=== PATIENT | female | born 1955 | race Caucasian/White ===

== ENCOUNTER 2019-12-23 09:46 | Outpatient (CLI) | payer OTHER, SELFPAY ==
[2019-12-23 10:35] LABS: Alanine Aminotransferase 10 U/L (4-35); Albumin Level 3.8 g/dL (3.5-5.1); Alkaline Phosphatase 78 U/L (38-126); Aspartate Amino Transferase 19 U/L (14-36); Bilirubin,Total 0.3 mg/dL (0.2-1.3); Blood Urea Nitrogen 22 mg/dL (7-17); Carbon Dioxide 24 mmol/L (22-30); Chloride 103 mmol/L (98-107); Estimated Glomerular Filt Rate > 60; Glucose 98 mg/dL (65-105); Magnesium 1.6 mg/dL (1.6-2.3); Potassium 3.9 mmol/L (3.4-5.0); Sodium 137 mmol/L (137-145)
[2019-12-23 10:37] LABS: Hematocrit 34.5 % (37.0-47.0); Hemoglobin 10.2 g/dL (12.0-15.0); Mean Corpuscular HGB Conc 29.6 g/dl (32-36); Mean Corpuscular Hemoglobin 25.1 pg (26-34); Mean Platelet Volume 10.4 fl (7.4-10.4); Platelet Count Result 286 k/mm3 (150-375); Red Blood Count 4.06 M/mm3 (4.2-5.4); White Blood Count 9.1 K/mm3 (4.5-10.0)
[2019-12-23 10:59] LABS: Iron 26 ug/dL (37-170)
[2019-12-23 11:08] LABS: Percent Iron Saturation 7 % (20-50)
[2019-12-23 11:24] LABS: Vitamin D 25 Hydroxy 61.2 ng/mL
[2019-12-23 11:41] LABS: Folic Acid 19.3 ng/mL (2.76->20)
[2019-12-24 11:34] LABS: Phosphorus 3.6 mg/dL (2.5-4.5)
[2019-12-26 09:03] LABS: Testosterone Free 0.2 pg/mL (0.2-5.0)
== END 2019-12-23 09:47 | disposition home or self-care (01) ==
PROVIDERS: PCP Family Medicine; Visit Provider Family Medicine
DX: M62.81 Muscle weakness (generalized) (principal); R55 Syncope and collapse; E83.52 Hypercalcemia; Z96.653 Presence of artificial knee joint, bilateral
CPT/HCPCS: 36415; 80053; 82306; 82607; 82728; 82746; 83540; 83550; 83735; 84100; 84402; 84443; 85027

== ENCOUNTER 2020-01-28 11:31 | Outpatient (CLI) | payer OTHER, SELFPAY ==
--- NOTE | ~2020-01-28 | US_ITS ---
EXAMINATION:US venous doppler LE LT INDICATION:Leg edema TECHNIQUE: Multiple grayscale, color flow and Doppler images of the left lower extremity deep venous systems were obtained and reviewed. COMPARISON:08/20/2019 FINDINGS: The common femoral, superficial femoral and popliteal veins demonstrate normal respiratory variation, augmentation and compressibility. Color flow is also seen within the posterior tibial, pe roneal, greater saphenous and profunda veins. IMPRESSION: 1: No lower extremity deep venous thrombosis. Reviewed, dictated and finalized at location A.
== END 2020-01-28 11:32 ==
PROVIDERS: PCP Family Medicine; Visit Provider Nurse Practitioner Family
DX: R60.9 Edema, unspecified (principal)
CPT/HCPCS: 93971

== ENCOUNTER 2020-03-20 16:58 | Emergency (ER) | payer OTHER, SELFPAY ==
[2020-03-20 17:11] VITALS: BP 115/64; PULSE 57; RESP 18; TEMP 36.8
--- NOTE | 2020-03-20 17:17 | PC.NURSE ---
pt wound had drained all day yesterday and now has dark red scabbed over center. cellulitis noted surrounding the wound
--- NOTE | 2020-03-20 18:32 | ED.GENADULT ---
HPI - General Adult General Chief complaint: Skin/Abscess/Foreign Body Stated complaint: spider bite Time Seen by Provider: 03/20/20 18:35 Source: patient Mode of arrival: ambulatory Limitations: no limitations History of Present Illness HPI narrative: 64-year-old female patient presents to the [facility] with complaints of a wound to the left lower belly that has been there for the past 4 days. Patient's unsure of any injury that she is aware of but thinks she might of gotten bitten by a spider. Patient states it started off as a pinpoint black wound and is gotten increasingly worse. Patient states she really has not had much drainage from it but is concerned about the redness around the black area. Patient states that she is no longer a diabetic since having gastric bypass surgery in 2015. Denies any fevers, body aches or chills. Related Data Home Medications Medication Instructions Recorded Confirmed aspirin 81 mg PO DAILY 11/18/19 11/18/19 gabapentin 11/18/19 pentoxifylline mg PO 11/18/19 sertraline [Zoloft] 50 mg PO DAILY 11/18/19 11/18/19 topiramate [Topamax] 50 mg PO BID 11/18/19 11/18/19 triamterene 11/18/19 Allergies Allergy/AdvReac Type Severity Reaction Status Date / Time morphine Allergy Intermediate HALLUCINATE Verified 12/06/19 11:57 S Penicillins AdvReac Mild YEAST Verified 12/06/19 11:57 INFECTION Bumble Bee Allergy Intermediate SWELLING Uncoded 12/06/19 11:57 Review of Systems Review of Systems: Narrative: CONSTITUTIONAL: Denies fever, chills, or sweats. EYES: Denies visual changes, redness, or discharge. ENT: Denies rhinorrhea, congestion, sore throat, or otalgia. CARDIOVASCULAR: Denies chest pain, palpitations, or edema. RESPIRATORY: Denies cough or dyspnea. GASTROINTESTINAL: Denies abdominal pain, nausea, vomiting, or diarrhea. GENITOURINARY: Denies dysuria or hematuria. SKIN: Denies rash or itching. Positive wound to left lower abdomen x4 days MUSCULOSKELETAL: Denies back pain, joint pain, or myalgia. NEUROLOGIC: Denies headache, numbness, or weakness. PSYCHIATRIC: Denies anxiety or depression. [facility] Past Medical History Medical History Anemia Diabetes DJD (degenerative joint disease) DVT prophylaxis Hypertension Meniere's disease Osteoarthritis Ovarian cyst Panic disorder Rotator cuff tear rt Surgical History Surgical History Hx of total knee arthroplasty bilateral Family History Family History Other Cerebrovascular accident Diabetes mellitus Family history of heart disease in male family member before age 55 Family history of lung disease Family history of malignant neoplasm Family history of seizure disorder Hypertension Social History Social History Smoking status: Former smoker Alcohol intake: current Gender identity (if verbalized by the patient): Female Comments At the time of my signature I agree with nursing past medical history, surgical, social, and family history. There is no relevant family history pertinent to the presenting complaint. Exam Narrative: Exam Narrative: GENERAL: Well-appearing, well-nourished, and in no acute distress. HEAD: Normocephalic, atraumatic. EYES: PERRLA and EOMI. ENT: Nares clear, no rhinorrhea or epistaxis. Mucous membranes moist. NECK: Supple. No lymphadenopathy CHEST: Clear to auscultation. No respiratory distress. HEART: Regular rate and rhythm. No murmur heard. Normal peripheral pulses. ABDOMEN: Soft, nontender, nondistended, normal active bowel sounds. EXTREMITIES: Normal range of motion. No edema. SKIN: Warm, dry, no rash. Patient does have what appears to be a black and necrotic area to the left lower abdomen measuring approximately 2 cm x 1.5 cm. Patient does have some peeling
== END 2020-03-20 18:40 | disposition home or self-care (01) ==
PROVIDERS: Emergency Provider Nurse Practitioner Family; PCP Family Medicine
DX: L03.311 Cellulitis of abdominal wall (principal); E11.9 Type 2 diabetes mellitus without complications; I10 Essential (primary) hypertension; H81.09 Meniere's disease, unspecified ear; M19.90 Unspecified osteoarthritis, unspecified site; Z96.653 Presence of artificial knee joint, bilateral; Z87.891 Personal history of nicotine dependence
CPT/HCPCS: 99213; G0463

== ENCOUNTER 2020-04-15 15:30 | Outpatient (CLI) | payer OTHER, SELFPAY ==
--- NOTE | ~2020-04-15 | MR_ITS ---
EXAMINATION: MR brain/brain stem wo con EXAM DATE: 04/15/2020 16:42 INDICATION: Migraine headache. Blurred vision. Numbness in fingers. TECHNIQUE: Magnetic resonance imaging (MRI) of the brain/brain stem obtained without contrast. Sagitt al T1, axial diffusion, gradient echo (T2*), T1, T2, FLAIR sequences obtained. Comparison is made to prior examination from 06/13/2012. FINDINGS: There are no areas of restricted diffusion to suggest acute infarction. There is no acute hemorrhage seen on the T2*, a hemosiderin sensitive sequence. No intraparenchymal brain mass lesion. There is mild periventricular and subcortical T2/FLAIR signal hyperintensity, nonspecific but probab ly related to small vessel ischemic disease (microangiopathy). There are no extra-axial collections. Flow voids are seen in the cerebral arteries on the T2-weighted sequences consistent with their exp ected patency. The orbits are unremarkable. Soft tissue is unremarkable. Compared to 2011, mild pr ogression in the microangiopathy. IMPRESSION: 1. No acute intracranial findings. 2. Mild microangiopathy. Reviewed, dictated and finalized at location A.
== END 2020-04-15 15:31 | disposition home or self-care (01) ==
PROVIDERS: PCP Family Medicine; Visit Provider Psychiatry & Neurology Neurology
DX: G43.909 Migraine, unspecified, not intractable, without status migrainosus (principal); R93.0 Abnormal findings on diagnostic imaging of skull and head, not elsewhere classified
CPT/HCPCS: 70551

== ENCOUNTER 2020-06-08 13:48 | Outpatient (CLI) | payer OTHER, SELFPAY ==
[2020-06-08 14:24] LABS: Hematocrit 40.2 % (37.0-47.0); Hemoglobin 12.6 g/dL (12.0-15.0); Immature Reticulocyte Fraction 9.6 % (3.0-15.9); Mean Corpuscular HGB Conc 31.3 g/dl (32-36); Mean Corpuscular Hemoglobin 28.4 pg (26-34); Mean Corpuscular Volume 90.5 fl (80-100); Mean Platelet Volume 10.6 fl (7.4-10.4); Platelet Count Result 184 k/mm3 (150-375); Red Blood Count 4.44 M/mm3 (4.2-5.4); Red Cell Distribution Width 15.9 % (11.5-14.5); Reticulocyte Hemoglobin Conten 33.7 pg (28.2-35.7); Reticulocyte Percent 1.32 % (0.7-4.3); Reticulocytes Absolute 0.06 B/L (32.2-175.7); White Blood Count 6.5 K/mm3 (4.5-10.0)
[2020-06-08 14:36] LABS: Alanine Aminotransferase 13 U/L (4-35); Albumin Level 4.1 g/dL (3.5-5.1); Alkaline Phosphatase 84 U/L (38-126); Aspartate Amino Transferase 22 U/L (14-36); Bilirubin,Total 0.7 mg/dL (0.2-1.3); Blood Urea Nitrogen 22 mg/dL (7-17); Calcium 10.3 mg/dL (8.4-10.2); Carbon Dioxide 26 mmol/L (22-30); Chloride 105 mmol/L (98-107); Estimated Glomerular Filt Rate > 60; Glucose 86 mg/dL (65-105); Lactate Dehydrogenase 332 U/L (313-618); Potassium 4.1 mmol/L (3.4-5.0); Sodium 138 mmol/L (137-145)
[2020-06-08 14:43] LABS: Transferrin 231 mg/dL (206-381)
[2020-06-08 15:01] LABS: Iron 85 ug/dL (37-170)
[2020-06-08 15:09] LABS: Basophils Absolute Auto 0.1 K/mm3 (0.0-0.1); Basophils Percent Auto 1.1 % (0.2-1.2); Eosinophils Absolute Auto 0.3 K/mm3 (0-0.3); Eosinophils Percent Auto 3.8 % (0-4.4); Immature Granulocyte Absolute 0.02 K/mm3 (0.00-0.031); Immature Granulocyte Percent A 0.3 % (0-0.5); Lymphocytes Absolute Auto 1.89 K/mm3 (0.9-3.2); Lymphocytes Percent Auto 28.6 % (18.3-44.2); Monocytes Absolute Auto 0.6 K/mm3 (0.1-0.6); Monocytes Percent Auto 9.7 % (2.6-8.5); Neutrophils Absolute Auto 3.7 K/mm3 (1.3-6.7); Neutrophils Percent Auto 56.5 % (45.5-73.1)
[2020-06-08 15:10] LABS: Percent Iron Saturation 28 % (20-50)
[2020-06-08 15:45] LABS: Folic Acid 7.2 ng/mL (2.76->20); Vitamin B12 > 1000.0 pg/mL (239-931)
== END 2020-06-08 13:49 | disposition home or self-care (01) ==
PROVIDERS: PCP Family Medicine; Visit Provider Nurse Practitioner
DX: E61.1 Iron deficiency (principal); E53.8 Deficiency of other specified B group vitamins; I10 Essential (primary) hypertension
CPT/HCPCS: 36415; 80053; 82607; 82728; 82746; 83540; 83550; 83615; 84466; 85025; 85027; 85046; 88108

== ENCOUNTER 2020-08-17 10:22 | Outpatient (CLI) | payer OTHER, SELFPAY ==
[2020-08-17 10:51] LABS: Anion Gap 9 mmol/L (8-16); Blood Urea Nitrogen 26 mg/dL (7-17); Calcium 10.5 mg/dL (8.4-10.2); Carbon Dioxide 26 mmol/L (22-30); Chloride 105 mmol/L (98-107); Estimated Glomerular Filt Rate 56; Glucose 83 mg/dL (65-105); Potassium 4.2 mmol/L (3.4-5.0); Sodium 140 mmol/L (137-145)
== END 2020-08-17 10:23 | disposition home or self-care (01) ==
PROVIDERS: PCP Family Medicine; Visit Provider Nurse Practitioner Family
DX: R60.9 Edema, unspecified (principal); I10 Essential (primary) hypertension
CPT/HCPCS: 36415; 80048

== ENCOUNTER → 2020-09-28 08:33 | Outpatient (CLI) | payer OTHER, SELFPAY ==
--- NOTE | ~2020-09-28 | XR_ITS ---
EXAMINATION: XR hand LT min 3V, XR wrist LT min 3V EXAM DATE: 09/28/2020 09:10 INDICATION: Pain in joints bilateral hands, pain bilateral wrists . TECHNIQUE: Left hand frontal, lateral and oblique projections obtained and reviewed. Left wrist fron nathaniel, frontal with ulnar deviation, oblique and lateral projections obtained and reviewed. There is n o prior study for comparison. FINDINGS: Left metacarpal bones are unremarkable. Left wrist scapholunate joint space is maintained . There is ulnar minus variance. There are no bony erosions identified. There is no more than mild p olyarticular primary osteoarthritis. There are no acute fractures or dislocations identified. There is no subcutaneous gas. There is soft tissue swelling over the wrist. There are no radiopaque forei gn bodies. IMPRESSION: 1. Nonspecific swelling over left wrist. 2. Mild polyarticular osteoarthritis. 3. Ulnar minus variance, congenital finding. Reviewed, dictated and finalized at location A. IL GREETER IMPRESSION: 1. Nonspecific swelling over left wrist. 2. Mild polyarticular osteoarthritis. 3. Ulnar minus variance, congenital finding.
--- NOTE | ~2020-09-28 | XR_ITS ---
EXAMINATION: XR hand RT min 3V, XR wrist RT min 3V EXAM DATE: 09/28/2020 09:10 INDICATION: Pain in joints bilateral hands, pain bilateral wrists . TECHNIQUE: Right hand frontal, lateral and oblique projections obtained and reviewed. Right wrist fro ntal, frontal with ulnar deviation, oblique and lateral projections obtained and reviewed. There is no prior study for comparison. FINDINGS: Right metacarpal bones are unremarkable. Right wrist scapholunate joint space is maintain ed. There is congenital ulnar minus variance. There is no more than mild polyarticular primary osteo arthritis. This is symmetric to the contralateral side. There are no bony erosions identified. There are no acute fractures or dislocations identified. There is no subcutaneous gas. The soft tissue i s unremarkable. There are no radiopaque foreign bodies. IMPRESSION: 1. Mild polyarticular right hand and wrist osteoarthritis. 2. Ulnar minus variance. Reviewed, dictated and finalized at location A. STRIAL SAFETY ENGINEER IMPRESSION: 1. Mild polyarticular right hand and wrist osteoarthritis. 2. Ulnar minus variance.
== END ==
PROVIDERS: PCP Family Medicine; Visit Provider Nurse Practitioner Family
DX: M19.031 Primary osteoarthritis, right wrist (principal); M79.89 Other specified soft tissue disorders; M19.032 Primary osteoarthritis, left wrist; M19.042 Primary osteoarthritis, left hand; M19.041 Primary osteoarthritis, right hand
CPT/HCPCS: 73110; 73130

== ENCOUNTER 2020-09-28 09:25 | Outpatient (CLI) | payer OTHER, SELFPAY ==
[2020-09-28 10:30] LABS: Add Urine Microscopic? YES; Appearance Urine Clear (Clear); Bacteria Urine Trace /hpf; Bilirubin Urine Negative (Negative); Blood Urine Negative (Negative); Color Urine Yellow (Yellow); Glucose Urine UA Negative (Negative); Ketones Urine Trace mg/dL (Negative); Leukocyte Esterase Ur 2+ LEU/UL (NEGATIVE); Mucus Urine Rare /lpf; Nitrate Urine Negative (Negative); Protein Urine 1+ mg/dL (Negative); RBC Urine 0-2 /hpf (0-2); Specific Grav Ur 1.024 (1.001-1.035); Squamous Epithelial Cell Urine Occasional /hpf (Few); WBC Urine >75 /hpf (0-3)
[2020-09-28 10:53] LABS: Erythrocyte Sedimentation Rate 31 mm/hr (0-20)
[2020-09-28 11:05] LABS: CRP 1.4 mg/dL (<1.0); Creatine Kinase 22 U/L (30-135); Uric Acid 7.2 mg/dL (2.5-7.5)
[2020-09-28 11:08] LABS: Complement C3 117 mg/dL (88-165); Rheumatoid Factor < 8.6 IU/ML (<12)
[2020-09-30 09:40] LABS: Anti Centromere B Antibody <1.0
[2020-09-30 10:16] LABS: Chromatin Antibody <1.0; RNP Antibodies <1.0
[2020-09-30 10:49] LABS: Complement Total CH50 >60 U/mL (31-60)
[2020-09-30 23:49] LABS: Anti Nuclear Antibody Titer >=1:1280 (Negative)
[2020-10-01 10:59] LABS: Anti Cyclic Citrullinated Pept 102 Units (<20)
[2020-10-01 21:35] LABS: Histone Antibody <1.0 U (<1.0)
== END 2020-09-28 09:26 | disposition home or self-care (01) ==
PROVIDERS: PCP Family Medicine; Visit Provider Nurse Practitioner Family
DX: M25.541 Pain in joints of right hand (principal); M25.542 Pain in joints of left hand; R53.83 Other fatigue; M54.5 Low back pain; M25.561 Pain in right knee; M25.562 Pain in left knee; R60.9 Edema, unspecified; M62.81 Muscle weakness (generalized)
CPT/HCPCS: 36415; 81001; 82550; 83516; 84550; 85652; 86038; 86039; 86140; 86160; 86162; 86200; 86225; 86235; 86430

== ENCOUNTER 2020-12-04 17:43 | Emergency (ER) | payer OTHER, SELFPAY ==
--- NOTE | ~2020-12-04 | XR_ITS ---
EXAMINATION: XR chest 2V DATE: 12/04/2020 18:23 INDICATION: Shortness of breath TECHNIQUE: frontal and lateral views of the chest were obtained. COMPARISON: Chest radiograph dated 11/04/2015 FINDINGS: New opacities at the posterior lung bases on the lateral projection, unclear whether left sided, righ t-sided or both and which could represent atelectasis and/or pneumonia. More streaky atelectasis at t he left costophrenic angle. No pulmonary edema, pleural effusion or pneumothorax. The cardiomediastin al silhouette is normal. Kennedy comparison prior rotator cuff repair at the right humeral head. Ther e are bridging osteophytes at multiple levels in the spine, consistent with diffuse idiopathic skelet al hyperostosis (DISH). Likely cholecystectomy clips in the upper abdomen. IMPRESSION: 1. Opacities project over the posterior lung bases, unclear whether left-sided, right-sided are both which could represent atelectasis and/or pneumonia. Reviewed, dictated and finalized at location A. CUTTER
--- NOTE | 2020-12-04 17:50 | PC.NURSE ---
1749-1st attempt to contact pt.. Pt did not answer phone.
--- NOTE | 2020-12-04 17:52 | PC.NURSE ---
2nd attempt to call- phone went straight to voicemail.
[2020-12-04 18:06] VITALS: BP 121/82; PULSE 78; RESP 18; TEMP 36.7; O2SAT 95
--- NOTE | 2020-12-04 18:23 | ED.URI ---
HPI - URI/Sore Throat General Chief Complaint: Upper Respiratory Infection Stated Complaint: COVID Time Seen by Provider: 12/04/20 18:15 Source: patient Mode of arrival: ambulatory Limitations: no limitations History of Present Illness HPI Narrative: Judy Santos is a 65 yo female with a PMH of DMT2, HTN, (in remission after 180 lb weight loss), who saw her doctor on and was tested on 11/30 and was closed Covid positive. She has been managing symptoms fairly well though she is developed a cough and today around noon started developed shortness of breath she got up to try to do dishes at the sink felt like she was going to lose consciousness sat down and rested for a while, and tried to do it again with the same result. She called her doctor who said she needed to come in and get a chest x-ray done. Related Data Home Medications Medication Instructions Recorded Confirmed cyanocobalamin (vitamin B-12) 1,000 mcg PO DAILY 12/04/20 12/04/20 furosemide 10 mg PO DAILY 12/04/20 12/04/20 gabapentin 300 mg PO TID 12/04/20 12/04/20 hydrochlorothiazide 25 mg PO DAILY 12/04/20 12/04/20 hydrocodone-acetaminophen 1 tablet PO DIRECTED 12/04/20 12/04/20 ibuprofen 800 mg PO QID 12/04/20 12/04/20 nabumetone 750 mg PO BID 12/04/20 12/04/20 ondansetron HCl 4 mg PO Q6-12H 12/04/20 12/04/20 topiramate 50 mg PO TID 12/04/20 12/04/20 Allergies Allergy/AdvReac Type Severity Reaction Status Date / Time morphine Allergy Intermediate HALLUCINATE Verified 06/08/20 10:53 S Penicillins AdvReac Mild YEAST Verified 06/08/20 10:53 INFECTION Bumble Bee Allergy Intermediate SWELLING Uncoded 06/08/20 10:53 Review of Systems Review of Systems: Narrative: CONSTITUTIONAL: Denies fever, chills, sweats. EYES: Denies visual changes, redness, discharge. ENT: Denies rhinorrhea, congestion, sore throat, otalgia. CARDIOVASCULAR: Denies chest pain, palpitations, edema. RESPIRATORY: Has dyspnea, shortness of breath with exertion, wheezing, dry cough GASTROINTESTINAL: Denies abdominal pain, nausea, vomiting, diarrhea. GENITOURINARY: Denies dysuria, hematuria, abnormal discharge SKIN: Denies rash or itching. NEUROLOGIC: Denies numbness, or focal weakness. PSYCHIATRIC: Denies anxiety or depression. [facility] Past Medical History Medical History (Updated 12/04/20 @ 18:33 by Beth Brock CNP) Anemia Diabetes DJD (degenerative joint disease) DVT prophylaxis Hypertension Meniere's disease Osteoarthritis Ovarian cyst Panic disorder Rotator cuff tear rt Surgical History Surgical History Hx of total knee arthroplasty bilateral Family History Family History Other Cerebrovascular accident Diabetes mellitus Family history of heart disease in male family member before age 55 Family history of lung disease Family history of malignant neoplasm Family history of seizure disorder Hypertension Social History Social History Smoking status: Former smoker Alcohol intake: current Gender identity (if verbalized by the patient): Female Comments At time of signature, I agree with nursing past medical, surgical, social and family history. There is no relevant family history pertinent to the presenting complaint. Exam Narrative: Exam Narrative: GENERAL: This is a well-nourished, well-developed patient, in moderate distress. HEAD: normocephalic, atraumatic. EYES: Sclera clear/white. Vision is grossly intact. EARS: External ears normal, . Hearing grossly intact. NOSE: External nose normal without nasal discharge, nares without redness, no rhinorrhea. THROAT: Mucous membranes moist, raspy voice NECK: Neck supple, non-tender CARDIOVASCULAR: Regular rate and rhythm without murmurs, gallops, or rubs. RESPIRATORY: Diminished to auscultation. Breath sounds equal except TLL
[2020-12-04] MEDS: IPRATROPIUM BR 0.02% INH SOLN 0.5 MG/2.5 ML VIAL INHALATION (18:36)
[2020-12-04] MEDS: ALBUTEROL SULFATE NEB 2.5 MG/3 ML INH INHALATION (18:36)
== END 2020-12-04 19:12 | disposition home or self-care (01) ==
PROVIDERS: Emergency Provider Nurse Practitioner; PCP Family Medicine
DX: U07.1 COVID-19 (principal); R06.02 Shortness of breath; Z87.891 Personal history of nicotine dependence; M19.90 Unspecified osteoarthritis, unspecified site
CPT/HCPCS: 71046; 94640; 96372; 99213; G0463; J1100

== ENCOUNTER 2020-12-18 13:51 | Outpatient (CLI) | payer OTHER, SELFPAY ==
--- NOTE | ~2020-12-18 | XR_ITS ---
EXAMINATION: XR chest 2V DATE: 12/18/2020 14:17 INDICATION: Pneumonia. Shortness of breath. TECHNIQUE: Frontal and lateral views of the chest were obtained. COMPARISON: Chest 2 views 12/04/2020 FINDINGS: There are airspace opacities at the lung bases. No pleural effusion or pneumothorax. The he art size is normal. There are suture anchors in right humeral head. IMPRESSION: 1. Worsened airspace opacities at the lung bases, consistent with atelectasis versus pneumonia. Reviewed, dictated and finalized at location A. H MANAGER IMPRESSION: 1. Worsened airspace opacities at the lung bases, consistent with atelectasis v ersus pneumonia.
== END 2020-12-18 13:52 ==
PROVIDERS: PCP Family Medicine
DX: J18.9 Pneumonia, unspecified organism (principal); R91.8 Other nonspecific abnormal finding of lung field
CPT/HCPCS: 71046

== ENCOUNTER 2021-03-16 22:47 | Observation (INO) | payer OTHER, SELFPAY ==
--- NOTE | ~2021-03-16 | NM_ITS ---
EXAMINATION: NM sherita stress w perfusion DATE: 03/17/2021 14:12 INDICATION: Atypical chest pain. TECHNIQUE: Rest images were obtained following intravenous administration of 7 mCi Tc99m tetrofosmin (Myoview). The patient was infused intravenously with Lexiscan (regadenoson). Then, 22.1 mCi Tc99m te trofosmin (Myoview) was administered intravenously, and stress images were obtained. Data was reconst ructed into short axis and horizontal and vertical long axis SPECT images. Gated SPECT images were al so obtained. COMPARISON: Chest CT 03/16/2021 FINDINGS: There is no definite reversible or fixed perfusion abnormality to suggest ischemia or infar ction. There is no segmental wall motion abnormality. Left ventricular ejection fraction measures > 70%. IMPRESSION: 1. No definite ischemia or infarct. 2. Normal left ventricular ejection fraction measuring >70%. Reviewed, dictated and finalized at location A.
--- NOTE | ~2021-03-16 | XR_ITS ---
EXAMINATION: XR chest 2V DATE: 03/16/2021 23:20 INDICATION: Midsternal chest pain TECHNIQUE: PA and lateral views of the chest were obtained. COMPARISON: Chest radiograph dated 12/18/2020 FINDINGS: Persistent opacities at the bilateral lung bases, left greater than right. No pleural effusion or pne umothorax. The cardiomediastinal silhouette is normal. Suture anchor at the right humeral head consis tent with prior rotator cuff repair. There are bridging osteophytes at multiple levels in the spine, consistent with diffuse idiopathic skeletal hyperostosis (DISH). IMPRESSION: 1. Persistent bibasilar opacities, left greater than right consistent with atelectasis and/or pneumon ia. Reviewed, dictated and finalized at location A. IMPRESSION: 1. Persistent bibasilar opacities, left greater than right consistent with atel ectasis and/or pneumonia.
--- NOTE | ~2021-03-16 | US_ITS ---
EXAMINATION: US venous doppler [facility] EXAM DATE: 03/17/2021 10:16 INDICATION: Elevated d-dimer and chest pain. TECHNIQUE: Multiple grayscale, color flow and Doppler images of the lower extremity deep venous syste ms bilaterally were obtained and reviewed. Comparison is made to prior examination from 01/28/2020. FINDINGS: Right side: The right common femoral, femoral and profunda veins demonstrate normal color flow, respi ratory variation, augmentation and compressibility. Compressibility, color flow confirmed within the right popliteal, posterior tibial, peroneal, and greater saphenous veins. Left side: The left common femoral, femoral and profunda veins demonstrate normal color flow, respira tory variation, augmentation and compressibility. Compressibility, color flow confirmed within the l eft popliteal, posterior tibial, peroneal, and greater saphenous veins. IMPRESSION: No lower extremity deep venous thrombosis bilaterally. Reviewed, dictated and finalized at location A.
--- NOTE | ~2021-03-16 | CT_ITS ---
EXAMINATION: CTA chest PE protocol DATE: 03/16/2021 23:47 INDICATION: Chest pain. Elevated d-dimer. TECHNIQUE: Computed tomography (CT) pulmonary angiogram of the chest was performed with 100 mL Omnipa que-350 intravenous contrast. Additional 3D reconstructions utilizing coronal maximum intensity proje ction (MIP) were performed. Automated exposure control and iterative reconstruction technique were em ployed. The dose-length product was 414.43 mGy-cm. COMPARISON: None FINDINGS: Could contrast opacification of the pulmonary arteries. There is mild streak artifact from dense cont rast in the superior vena cava and right atrium. Minimal scattered respiratory motion artifact which does not significantly limit evaluation. No pulmonary embolism. Mild groundglass and reticular opacit ies at the lung bases superimposed over peripheral cystic lung disease. This could represent either u sual interstitial pneumonia (UIP) with honeycombing or atelectasis and/or mild pulmonary edema superi mposed over paraseptal predominant emphysema. Some additional paraseptal and centrilobular emphysema seen in the upper lung zones without corresponding interstitial lung disease which would favor the la tter. No pneumonia or pleural effusion. Mild atelectasis/scarring along the inferior lingula. Heart s ize is normal. No pericardial effusion. Small amount of atherosclerotic coronary artery calcification along the left anterior descending coronary artery. Thoracic aorta is normal in caliber with no diss ection. Mild enlargement of the central pulmonary arteries consistent with pulmonary arterial hyperte nsion. No pathologically enlarged thoracic lymphadenopathy. Cholecystectomy clips at the gallbladder fossa. There are bridging osteophytes at multiple levels in the spine, consistent with diffuse idiopa thic skeletal hyperostosis (DISH). IMPRESSION: 1. No pulmonary embolism. 2. Bilateral basilar predominant opacities and cystic lung disease. Would favor mild bibasilar atelec tasis and/or pulmonary edema superimposed on paraseptal emphysema over usual interstitial pneumonia ( UIP) pattern chronic interstitial lung disease. 3. Mild enlargement of the central pulmonary arteries consistent with pulmonary arterial hypertension . Reviewed, dictated and finalized at location A. IMPRESSION: 1. No pulmonary embolism. 2. Bilateral basilar predominant opacities and cystic lung disease. Would favor mild bibasilar atelectasis and/or pulmonary edema superimposed on paraseptal e mphysema over usual interstitial pneumonia (UIP) pattern chronic interstitial l selvin disease. 3. Mild enlargement of the central pulmonary arteries consistent with pulmonary arterial hypertension.
[2021-03-16 22:51] VITALS: BP 135/75; PULSE 63; RESP 13; TEMP 37; O2SAT 100
--- NOTE | 2021-03-16 22:59 | ECG_ITS ---
Measurements Intervals [place] Rate: 62 P: 66 AR: 169 QRS: 12 QRSD: 107 T: -2 QT: 391 QTc: 398 Interpretive Statements SINUS RHYTHM CONSIDER INFERIOR INFARCT, AGE INDETERMINATE BORDERLINE ST ABNORMALITY- LAT/HIGH LAT LEADS BASELINE ARTIFACT- II, III, AVF, V2-V6 ABNORMAL ECG Electronically Signed On 03-17-2021 7:10:04 CDT by Elias Ling D.O.
--- NOTE | 2021-03-16 23:06 | ED.CHESTPAIN ---
HPI - Chest Pain General Chief Complaint: Chest Pain Stated Complaint: chest pain/indegestion/hi b/b Time Seen by Provider: 03/16/21 22:59 Source: patient Mode of arrival: ambulatory Limitations: no limitations History of Present Illness HPI narrative: Patient is a 65-year-old female complaining of chest pain, substernal, indigestion , 8 out of 10, nonradiating, worse with inspiration accompanied by nausea started 2 hours prior to arrival. Patient denies any shortness of breath, abdominal pain, vomiting, diarrhea, fever or chills. Related Data Home Medications Medication Instructions Recorded Confirmed cyanocobalamin (vitamin B-12) 1,000 mcg PO DAILY 12/04/20 12/04/20 furosemide 10 mg PO DAILY 12/04/20 12/04/20 gabapentin 300 mg PO TID 12/04/20 12/04/20 hydrochlorothiazide 25 mg PO DAILY 12/04/20 12/04/20 hydrocodone-acetaminophen 1 tablet PO DIRECTED 12/04/20 12/04/20 ibuprofen 800 mg PO QID 12/04/20 12/04/20 nabumetone 750 mg PO BID 12/04/20 12/04/20 ondansetron HCl 4 mg PO Q6-12H 12/04/20 12/04/20 topiramate 50 mg PO TID 12/04/20 12/04/20 Allergies Allergy/AdvReac Type Severity Reaction Status Date / Time morphine Allergy Intermediate HALLUCINATE Verified 06/08/20 10:53 S Penicillins AdvReac Mild YEAST Verified 06/08/20 10:53 INFECTION Bumble Bee Allergy Intermediate SWELLING Uncoded 06/08/20 10:53 Review of Systems Review of Systems: All systems reviewed & are unremarkable except as noted in HPI and below Constitutional: Constitutional: Denies body ache(s), Denies chills, Denies excessive sweating, Denies fatigue, Denies fever(s), Denies headache(s), Denies lethargy, Denies malaise, Denies weakness and Denies weight loss Eyes: Eyes: Denies blurry vision, Denies change in vision and Denies loss of vision ENT: Denies dizziness, Denies ear discharge, Denies headache(s), Denies lip swelling, Denies epistaxis, Denies nasal congestion, Denies neck pain, Denies throat swelling and Denies tongue swelling Cardiovascular: Cardiovascular: Denies chest pain with activity, Denies diaphoresis, Denies rapid heart rate, Denies edema, Denies irregular heart rhythm, Denies lightheadedness, Denies palpitations, Denies dyspnea and Denies dyspnea on exertion Respiratory: Respiratory: Denies chest congestion, Denies cough, Denies hemoptysis, Denies dyspnea and Denies dyspnea on exertion Gastrointestinal: Gastrointestinal: Denies abdominal pain, Denies melena, Denies hematochezia, Denies diarrhea, Denies vomiting and Denies hematemesis Musculoskeletal: Musculoskeletal: Denies abnormal gait, Denies deformity, Denies joint swelling, Denies limited range of motion, Denies neck pain and Denies numbness Neurologic: Denies Abnormal speech present, Denies abnormal gait, Denies confusion, Denies dizziness, Denies headache(s), Denies focal weakness, Denies loss of vision, Denies numbness, Denies Other visual disturbances, Denies Sensory deficit (Neuro) and Denies weakness Psychiatric: Psychiatric: Denies confusion, Denies depression, Denies auditory hallucinations, Denies homicidal ideation and Denies suicidal ideation Endocrine: Endocrine: Denies cold intolerance, Denies excessive sweating, Denies fatigue, Denies heat intolerance and Denies palpitations Hematologic/Lymphatic: Hematologic/Lymphatic: Denies easy bleeding and Denies easy bruising Allergic/Immunologic: Allergic/Immunologic: Denies lip swelling, Denies throat swelling and Denies tongue swelling PMFSH Past Medical History Medical History (Updated 03/17/21 @ 00:32 by Sukumar Dye MD) Anemia Diabetes DJD (degenerative joint disease) DVT prophylaxis Hypertension Meniere's disease Osteoarthritis Ovarian cyst Panic disorder Rotator cuff tear rt Surgical History Surgical History Hx of total knee arthroplasty bilateral Family History Family History
[2021-03-16 23:15] LABS: Basophils Absolute Auto 0.1 K/mm3 (0.0-0.1); Eosinophils Absolute Auto 0.9 K/mm3 (0-0.3); Eosinophils Percent Auto 9.5 % (0-4.4); Hematocrit 37.3 % (37.0-47.0); Hemoglobin 11.5 g/dL (12.0-15.0); Immature Granulocyte Absolute 0.04 K/mm3 (0.00-0.031); Immature Granulocyte Percent A 0.4 % (0-0.5); Lymphocytes Absolute Auto 2.02 K/mm3 (0.9-3.2); Lymphocytes Percent Auto 22.3 % (18.3-44.2); Mean Corpuscular HGB Conc 30.8 g/dl (32-36); Mean Corpuscular Hemoglobin 29.2 pg (26-34); Mean Corpuscular Volume 94.7 fl (80-100); Mean Platelet Volume 10.1 fl (7.4-10.4); Monocytes Absolute Auto 0.9 K/mm3 (0.1-0.6); Monocytes Percent Auto 9.6 % (2.6-8.5); Neutrophils Absolute Auto 5.2 K/mm3 (1.3-6.7); Neutrophils Percent Auto 57.2 % (45.5-73.1); Platelet Count Result 263 k/mm3 (150-375); Red Blood Count 3.94 M/mm3 (4.2-5.4); Red Cell Distribution Width 13.4 % (11.5-14.5); White Blood Count 9.1 K/mm3 (4.5-10.0)
[2021-03-16 23:24] LABS: INR 0.9; Prothrombin Time 13.1 Seconds (11.1-14.7)
[2021-03-16 23:25] LABS: Partial Thromboplastin Time 34.6 SECONDS (22.3-36.8)
[2021-03-16 23:27] LABS: D Dimer 2.21 ug/mL (<0.48)
[2021-03-16 23:28] LABS: Alanine Aminotransferase 10 U/L (4-35); Alkaline Phosphatase 99 U/L (38-126); Anion Gap 8 mmol/L (8-16); Aspartate Amino Transferase 22 U/L (14-36); Bilirubin,Total 0.6 mg/dL (0.2-1.3); Blood Urea Nitrogen 25 mg/dL (7-17); Calcium 9.7 mg/dL (8.4-10.2); Carbon Dioxide 23 mmol/L (22-30); Chloride 107 mmol/L (98-107); Estimated CRCL calculation 44 ml/min; Estimated Glomerular Filt Rate 41; Glucose 100 mg/dL (65-105); Potassium 3.7 mmol/L (3.4-5.0); Sodium 138 mmol/L (137-145)
[2021-03-16] MEDS: ASPIRIN 81 MG CHEWABLE TABLET 324 MG PO (23:31)
[2021-03-16 23:40] LABS: NT Pro B Type Natriuretic Pept 458 pg/mL (5-100); Troponin I < 0.012 ng/mL (0.000-0.034)
[2021-03-17] VITALS (12 sets, daily range): BP systolic 98–134; BP diastolic 59–71; PULSE 53–71; RESP 16–20; TEMP 36.1–36.6; O2SAT 96–99; BMI 31.6
--- NOTE | 2021-03-17 | ECHO_ITS ---
Patient Info Name: Judy Santos Age: 65 years : 1955 Gender: Female Ht: 65 in Wt: 190 lbs BSA: 2.02 m2 HR: 53 bpm BP: 120 / 71 mmHg Heart Rhythm: Sinus Rhythm, Bradycardia Technical Quality: Good Exam Date: 03/17/2021 8:15 AM Exam Location: [facility] Patient Status: Inpatient Admit Date: 03/17/2021 Staff Ordering Physician: Anabel Colby NP [employer] Teacher'S Aide: Colt Cleveland, ROMARIO, RT Attending Provider: Miki Spears MD Referring Physician: Earnestine GARCIA; Exam Type: CA echo doppler color flow Study Info Indications R07.89 - Other chest pain R01.1 - Cardiac murmur, unspecified Complete two-dimensional, color flow and Doppler transthoracic echocardiogram is performed. Strain analysis performed. Summary 1. Complete two-dimensional, color flow and Doppler transthoracic echocardiogram is performed. 2. Left ventricular systolic function is normal, estimated at 65-70%. 3. There is no increased left ventricular wall thickness. 4. The left ventricular diastolic function is grade I diastolic dysfunction. 5. Left atrial chamber dimension is mildly enlarged. 6. There is no aortic valve stenosis. 7. There is mild mitral valve regurgitation. 8. There is mild tricuspid valve regurgitation. 9. Unable to estimate PA systolic pressure due to poor spectral resolution of tricuspid regurgitant jet velocity. 10. Dilated inferior vena cava with <50% collapse upon inspiration consistent with elevated right atrial pressure, 10 mmHg. Left Ventricle Left ventricular chamber dimension is normal. Left ventricular systolic function is normal, estimated at 65-70%. There is no increased left ventricular wall thickness. The left ventricular diastolic function is grade I diastolic dysfunction. Global longitudinal strain is normal at -21 %. Right Ventricle Right ventricular chamber dimension is normal. Right ventricular systolic function is normal. Left Atria Left atrial chamber dimension is mildly enlarged. Right Atria Right atrial chamber dimension is normal. Aortic Valve The aortic valve is not well visualized. There is no aortic valve stenosis. There is no aortic valve regurgitation. Pulmonic Valve The pulmonic valve is not well visualized. There is trace pulmonic regurgitation. Mitral Valve The mitral valve has normal leaflets. There is mild mitral valve regurgitation. The mitral valve annulus is mildly calcified. Tricuspid Valve The tricuspid valve leaflets are normal. There is mild tricuspid valve regurgitation. Unable to estimate PA systolic pressure due to poor spectral resolution of tricuspid regurgitant jet velocity. Pericardium/Pleural The pericardium appears normal. There is small pericardial effusion. Inferior Vena Cava Dilated inferior vena cava with <50% collapse upon inspiration consistent with elevated right atrial pressure, 10 mmHg. Aorta The aortic root size at the sinus of Valsalva is normal. There is mild aortic atherosclerosis. Left Ventricular Outflow Tract Name Value Normal LVOT 2D LVOT Diameter 2.1 cm LVOT Doppler LVOT Peak Gradient
[2021-03-17 04:44] LABS: Troponin I < 0.012 ng/mL (0.000-0.034)
--- NOTE | 2021-03-17 05:17 | ADMGEN ---
This patient, Judy Santos, was admitted to IMU Room 201-01. Patient/family oriented to hospital policies and general routines including ID bracelet, bed and alarms, visiting hours, pain management, procedures, bathroom and other care routines, personal items, smoking policy, room service/diet, and visiting hours. Information on how to activate the Rapid Response Team has been discussed. Patient/Family are encouraged to report perceived risks to care and to ask questions if they do not understand what they are told or what they should do. Chan MCCARTHY arrived [id number]
[2021-03-17 05:53] LABS: Troponin I < 0.012 ng/mL (0.000-0.034)
--- NOTE | 2021-03-17 06:19 | PM.IMHP ---
H&P: HPI History of Present Illness Date/Time: 03/17/21 06:19 this is a 65-year-old female patient who has a past medical history of having morbid obesity with a gastric bypass surgery. The patient had many medical complications prior to her gastric surgery but has been taken off of many of her medications. The patient had dorito chicken for lunch and then had a grilled chicken without barbecue sauce for dinner. The patient stated she was belching a lot and felt like she had indigestion. However her pain was getting worse and she rated 8/10. Was midsternal. And she was slightly nauseated. This all occurred about 2 hours prior to coming to the emergency room. It did not radiate down her arm her to her back. She was not diaphoretic. The patient tells me that she is on a daily aspirin. Cardiac enzymes have been negative x3. The patient stated that every time Time she takes deep breaths, she has chest pain. Her D-dimer was elevated to 2.21. CT a pulmonary was read asno pulmonary embolism, bilateral basilar predominant opacities in cystic lung disease. Would favor mild bibasilar atelectasis and/or pulmonary edema superimposed on paraseptal emphysema over usual interstitial pneumonia pattern chronic interstitial lung disease. Mild enlargement of central pulmonary arteries consistent with pulmonary artery hypertension. Patient denies any lung disease.The patient was given an aspirin. The patient tried Tums at home but had no affect. Patient was being admitted to observation status on 03/17/2021. Chief Complaint: Chest pain Review of Systems Review of Systems: All systems reviewed & are unremarkable except as noted in HPI and below Constitutional: Constitutional: Reports as per HPI and Reports no additional constitutional complaints Eyes: Eyes: Reports as per HPI and Reports no additional eye complaints ENT: Reports system reviewed and no additional complaints, except as documented and Reports Normal hearing present Cardiovascular: Cardiovascular: Reports no additional cardiovascular complaints Respiratory: Respiratory: Reports no additional respiratory complaints and Reports no additional respiratory complaints Gastrointestinal: Gastrointestinal: Reports as per HPI and Reports no additional gastrointestinal complaints Musculoskeletal: Musculoskeletal: Reports no additional musculoskeletal complaints Integumentary/Breasts: Skin/Breast: Reports system reviewed and no additional complaints, except as docu and Reports as per HPI Neurologic: Reports system reviewed and no additional complaints, except as documented, Reports as per HPI and Reports Normal hearing present Psychiatric: Psychiatric: Reports no additional psychiatric complaints and Reports as per HPI Endocrine: Endocrine: Reports no additional endocrine complaints Hematologic/Lymphatic: Hematologic/Lymphatic: Reports no additional hematologic/lymphatic complaints Allergic/Immunologic: Allergic/Immunologic: Reports no additional allergic/immunologic complaints [facility] Past Medical History Medical History (Updated 03/17/21 @ 06:54 by Anabel Colby NP) Anemia Chronic GERD Depression with anxiety Diabetes No longer takes any medications since she had a gastric bypass DJD (degenerative joint disease) DVT prophylaxis Hypertension No longer takes any medication for high blood pressure since she received her gastric bypass Meniere's disease Migraines Neuropathy Osteoarthritis Ovarian cyst Panic disorder Rotator cuff tear rt Surgical History Surgical History (Updated 03/17/21 @ 06:33 by Anabel Colby NP) H/O gastric bypass H/O lateral meniscus repair of right knee History of section, classical Hx of cholecystectomy Hx of total knee arthroplasty bilateral S/P rotator cuff repair Family History Family History (Updated 03/17/21 @ 06:35 by Anabel Colby NP) Father Cerebrovascular accident Hypertension Cancer Mother Hypertension Meera
[2021-03-17 06:38] LABS: Basophils Absolute Auto 0.1 K/mm3 (0.0-0.1); Eosinophils Absolute Auto 0.7 K/mm3 (0-0.3); Eosinophils Percent Auto 10.1 % (0-4.4); Hematocrit 33.5 % (37.0-47.0); Hemoglobin 10.3 g/dL (12.0-15.0); Immature Granulocyte Absolute 0.03 K/mm3 (0.00-0.031); Immature Granulocyte Percent A 0.4 % (0-0.5); Lymphocytes Absolute Auto 1.46 K/mm3 (0.9-3.2); Lymphocytes Percent Auto 21.8 % (18.3-44.2); Mean Corpuscular HGB Conc 30.7 g/dl (32-36); Mean Corpuscular Volume 94.4 fl (80-100); Mean Platelet Volume 10.5 fl (7.4-10.4); Monocytes Absolute Auto 0.8 K/mm3 (0.1-0.6); Monocytes Percent Auto 11.3 % (2.6-8.5); Neutrophils Absolute Auto 3.7 K/mm3 (1.3-6.7); Neutrophils Percent Auto 55.4 % (45.5-73.1); Platelet Count Result 222 k/mm3 (150-375); Red Blood Count 3.55 M/mm3 (4.2-5.4); Red Cell Distribution Width 13.4 % (11.5-14.5); White Blood Count 6.7 K/mm3 (4.5-10.0)
[2021-03-17 06:48] LABS: Alanine Aminotransferase 8 U/L (4-35); Albumin Level 3.2 g/dL (3.5-5.1); Alkaline Phosphatase 70 U/L (38-126); Anion Gap 6 mmol/L (8-16); Aspartate Amino Transferase 23 U/L (14-36); Bilirubin,Total 0.4 mg/dL (0.2-1.3); Blood Urea Nitrogen 25 mg/dL (7-17); Calcium 9.3 mg/dL (8.4-10.2); Carbon Dioxide 22 mmol/L (22-30); Chloride 111 mmol/L (98-107); Estimated CRCL calculation 50 ml/min; Estimated Glomerular Filt Rate 50; Glucose 86 mg/dL (65-105); Magnesium 1.5 mg/dL (1.6-2.3); Potassium 3.7 mmol/L (3.4-5.0); Sodium 139 mmol/L (137-145)
[2021-03-17] MEDS: diphenhydrAMINE HCl CAP 25 MG CAPSULE 50 MG PO (09:00)
[2021-03-17] MEDS: FERROUS SULFATE 324 MG TABLET PO (09:29)
[2021-03-17] MEDS: TOPIRAMATE 25 MG TABLET 50 MG PO ×3 (09:29→17:31)
[2021-03-17] MEDS: ASPIRIN 81 MG ENTERIC TABLET PO (09:30)
[2021-03-17] MEDS: NABUMETONE 500 MG TABLET 1000 MG PO ×2 (09:30→17:30)
[2021-03-17] MEDS: FAMOTIDINE 20 MG/2 ML VIAL IV PUSH ×2 (09:32→20:16)
[2021-03-17] MEDS: GABAPENTIN 300 MG CAPSULE 600 MG PO ×3 (09:32→17:31)
[2021-03-17] MEDS: ENOXAPARIN 40 MG/0.4 ML SYRINGE SUB-Q (09:35)
--- NOTE | 2021-03-17 11:20 | EST_ITS ---
Patient Info Name: Judy Santos Age: 65 years : 1955 Gender: Female Ht: 63 in Wt: 190 lbs BSA: 1.99 m2 Heart Rhythm: Sinus Rhythm Exam Date: 03/17/2021 12:54 PM Exam Location: [facility] Patient Status: Inpatient Admit Date: 03/17/2021 Staff Ordering Physician: Carri Ritchie MD Attending Provider: Miki Spears MD Exercise Technologist: Oanh Etienne CT Exercise Physician: Gen Aldridge MD Exam Type: CA stress sherita w NM Study Info A regadenoson stress test was performed. Summary 1. Unremarkable ECG response to Lexiscan without changes meeting strict criteria for reversible myocardial ischemia. 2. No arrhythmias were observed during the examination. 3. Please correlate with nuclear medicine images, reported separately. 4. No chest discomfort with stress test. Protocol: Lexiscan Stress ECG Details Stage: REST Duration (min): 1 min : 0 sec HR (bpm): 51 SBP (mmHg): --- DBP (mmHg): --- Stage: REST Duration (min): 11 min : 16 sec HR (bpm): 56 SBP (mmHg): --- DBP (mmHg): --- Stage: STAGE 1 Duration (min): 1 min : 0 sec HR (bpm): 69 SBP (mmHg): 107 DBP (mmHg): 65 Stage: RECOVERY Duration (min): 1 min : 0 sec HR (bpm): 92 SBP (mmHg): 107 DBP (mmHg): 65 Stage: RECOVERY Duration (min): 2 min : 0 sec HR (bpm): 83 SBP (mmHg): 107 DBP (mmHg): 65 Stage: RECOVERY Duration (min): 3 min : 0 sec HR (bpm): 73 SBP (mmHg): 113 DBP (mmHg): 57 Stage: RECOVERY Duration (min): 3 min : 3 sec HR (bpm): 73 SBP (mmHg): 113 DBP (mmHg): 57 Rest HR: 56 bpm Peak HR: 93 bpm Peak Sys BP: 113 mmHg Max Pred HR: 157 bpm % Max Pred HR: 59 % Target HR: 133 bpm Max RPP: 10,509 bpm*mmHg Termination Reason: Completed protocol Cardiac Symptoms: None Total Time: 1 min : 0 sec Peak Patterson BP: 57 mmHg Total Dose: 0.4 mg Resting ECG Sinus bradycardia. Stress ECG Unremarkable ECG response to Lexiscan without changes meeting strict criteria for reversible myocardial ischemia. Arrhythmias No arrhythmias were observed during the examination. Report Signatures
--- NOTE | 2021-03-17 11:26 | PM.IMPN ---
Progress Note: A&P Assessment and Plan (1) Chest pain: Code(s): R07.9 - Chest pain, unspecified Status: Acute Assessment and Plan: Most likely acid reflux. The patient did have an elevated D-dimer but CTA was negative. ordered Pepcid for the patient as well. Troponins are negative x3. EKG was read as sinus rhythm. Will obtain a Lexiscan (2) Depression with anxiety: Code(s): F41.8 - Other specified anxiety disorders Status: Chronic Assessment and Plan: Continue with her home medication of sertraline. (3) Cardiac murmur due to mitral valve disorder: Code(s): I34.0 - Nonrheumatic mitral (valve) insufficiency Status: Acute Assessment and Plan: 2DECHO pending (4) Interstitial lung disease: Code(s): J84.9 - Interstitial pulmonary disease, unspecified Status: Acute Assessment and Plan: Patient is unaware this diagnosis. It was noted on her CT scan. Will follow-up in outpatient setting (5) Meniere's disease: Code(s): H81.09 - Meniere's disease, unspecified ear Status: Chronic Assessment and Plan: Continue with Benadryl. Stable (6) Neuropathy: Code(s): G62.9 - Polyneuropathy, unspecified Status: Chronic Assessment and Plan: Continue with gabapentin Stable (7) Migraines: Code(s): G43.909 - Migraine, unspecified, not intractable, without status migrainosus Status: Chronic Assessment and Plan: Continue with topiramate Stable Subjective Date/time seen: 03/17/21 11:26 I feel much better Review of Systems Review of Systems: All systems reviewed & are unremarkable except as noted in HPI and below Constitutional: Constitutional: Reports as per HPI and Reports no additional constitutional complaints Eyes: Eyes: Reports as per HPI and Reports no additional eye complaints ENT: Reports system reviewed and no additional complaints, except as documented and Reports Normal hearing present Cardiovascular: Cardiovascular: Reports no additional cardiovascular complaints Respiratory: Respiratory: Reports no additional respiratory complaints and Reports no additional respiratory complaints Gastrointestinal: Gastrointestinal: Reports as per HPI and Reports no additional gastrointestinal complaints Musculoskeletal: Musculoskeletal: Reports no additional musculoskeletal complaints Integumentary/Breasts: Skin/Breast: Reports system reviewed and no additional complaints, except as docu and Reports as per HPI Neurologic: Reports system reviewed and no additional complaints, except as documented, Reports as per HPI and Reports Normal hearing present Psychiatric: Psychiatric: Reports no additional psychiatric complaints and Reports as per HPI Endocrine: Endocrine: Reports no additional endocrine complaints Hematologic/Lymphatic: Hematologic/Lymphatic: Reports no additional hematologic/lymphatic complaints Allergic/Immunologic: Allergic/Immunologic: Reports no additional allergic/immunologic complaints Exam Const: General: cooperative, healthy appearing, comfortable, no acute distress, well developed, alert, awake and Physically active Nutritional Appearance: average body habitus and well nourished Orientation/consciousness: oriented to person, oriented to place, oriented to time and patient oriented x3 Limitations: no limitations HENMT: Head: normal to inspection, No palpable skull fracture present, normocephalic and atraumatic Ears: hearing grossly normal bilaterally and external ears normal General nose exam: Normal external nose present, Normal nares present and No nasal polyps present Eyes: General: appearance normal, both eyes and all related structures Alignment and Position: alignment normal Periorbital: periorbital findings normal Eyelids: eyelids normal Conjunctivae: conjunctivae normal Sclera: sclerae normal Cornea: corneas normal Pupils: Equal, round and reactive pupil
--- NOTE | 2021-03-17 12:38 | PC.NURSE ---
1145- to [facility] procedure via wheelchair accompanied by transporter
[2021-03-17] MEDS: hydroCHLOROthiazide 12.5 MG CAPSULE 37.5 MG PO (15:00)
[2021-03-17] MEDS: CYANOCOBALAMIN 1,000 MCG TABLET 1000 MCG PO (15:00)
[2021-03-17] MEDS: HYDROcodone/acetaminophen (*CRX) 10-325 MG TABLET 1 TAB PO ×2 (15:04→20:30)
[2021-03-17] MEDS: SERTRALINE HCL 50 MG TABLET PO (20:16)
[2021-03-18] VITALS (9 sets, daily range): BP systolic 92–133; BP diastolic 46–76; PULSE 48–102; RESP 13–18; TEMP 36.3–36.8; O2SAT 98–100
[2021-03-18] MEDS: HYDROcodone/acetaminophen (*CRX) 10-325 MG TABLET 1 TAB PO (03:57)
--- NOTE | 2021-03-18 08:37 | PC.NURSE ---
pt med / surg status- bed obtained on 3 medical - report given to Saima MCCARTHY- pt move to room 321 via bed accompanied by staff- personal belongings with pt -
--- NOTE | 2021-03-18 09:14 | WPDGICN ---
Assessment and Plan Assessment and plan (1) Non-cardiac chest pain: Code(s): R07.89 - Other chest pain Status: Acute Assessment and Plan: will assess with EGD to check for esophagitis, ulcers, etc, she says that used to take antacids but has been feeling better after her gastric bypass cardiac work up negative (2) Dyspepsia: Code(s): R10.13 - Epigastric pain Status: Acute Assessment and Plan: egd today (3) H/O gastric bypass: Code(s): Z98.84 - Bariatric surgery status Status: Inactive Assessment and Plan: she denies any complications since her surgery (4) Chronic GERD: Code(s): K21.9 - Gastro-esophageal reflux disease without esophagitis Status: Chronic GI Consult Note Consult date/time: 03/18/21 09:14 Reason for consult: non cardiac chest pain, dyspepsia HPI: Judy Santos is a 65 year old female with previous gastric bypass surgery in 2016 as bariatric surgery, no complications. She used to have GERD but symptoms improved after surgery to the point that she is not taking any more meds. She came here with new onset of indigestion and belching, used tums but then had chest discomfort and she worried about possible heart attack, at some point pain was 8/10 and midsternal, also mild nausea but no vomiting and diaphoresis. ER evaluation with normal cardiac enzymes. D-dimer was elevated to 2.21 then CTA pulmonary reviewed, no pulmonary embolism, bilateral basilar predominant opacities in cystic lung disease. She is feeling better now and clear by cardiology with normal stress test. Last EGD years ago. Review of Systems Constitutional: Constitutional: Denies chills Eyes: Eyes: Denies blurry vision ENT: Reports Normal hearing present Cardiovascular: Cardiovascular: Reports chest pain Respiratory: Respiratory: Denies cough Gastrointestinal: Gastrointestinal: Reports abdominal pain and Reports nausea Genitourinary: Genitourinary: Denies hematuria Musculoskeletal: Musculoskeletal: Denies neck pain Integumentary/Breasts: Skin/Breast: Denies dry skin Neurologic: Denies headache(s) Psychiatric: Psychiatric: Reports as per HPI [facility] Past Medical History Medical History (Updated 03/18/21 @ 09:19 by Derek Villagomez MD) Anemia Chronic GERD Depression with anxiety Diabetes No longer takes any medications since she had a gastric bypass DJD (degenerative joint disease) DVT prophylaxis Dyspepsia Hypertension No longer takes any medication for high blood pressure since she received her gastric bypass Meniere's disease Migraines Neuropathy Non-cardiac chest pain Osteoarthritis Ovarian cyst Panic disorder Rotator cuff tear rt Surgical History Surgical History (Updated 03/18/21 @ 09:19 by Derek Villagomez MD) H/O gastric bypass H/O lateral meniscus repair of right knee History of section, classical Hx of cholecystectomy Hx of total knee arthroplasty bilateral S/P rotator cuff repair Family History Family History (Updated 03/17/21 @ 06:35 by Anabel Colby NP) Father Cerebrovascular accident Hypertension Cancer Mother Hypertension Diabetes mellitus Breast cancer Other Family history of heart disease in male family member before age 55 Family history of lung disease Family history of malignant neoplasm Family history of seizure disorder Social History Social History (Updated 03/17/21 @ 06:37 by Anabel Colby NP) Social History: The patient has 2 sons and a daughter. She is . Her 1 son is staying with her at this time. Her son is the durable power civil attorney for healthcare. The patient is a full code. Patient used to smoke and she quit in 1996. 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 The patient does not use marijuana or alcohol. Smoking packs per day: 4 Smoking cigarettes per day: 80.0 Years smoked: 20 Smoking pack-years: 80.[address]
[2021-03-18] MEDS: ENOXAPARIN 40 MG/0.4 ML SYRINGE SUB-Q (10:11)
[2021-03-18] MEDS: FAMOTIDINE 20 MG/2 ML VIAL IV PUSH (10:12)
[2021-03-18 12:36] LABS: Glucose Point of Care 74 (65-105)
--- NOTE | 2021-03-18 12:42 | WPDANESEPPF ---
Anes - Initial Pre Proc Eval Procedure: Operation Date: 03/18/21 13:00 Proposed Procedures p Esophagogastroduodenoscopy - Derek Villagomez MD Date/Time: 03/18/21 12:42 Surgeon: Miki Spears MD Pre Op Diagnosis: chest pain Patient Data Age: 65 Gender: F Height: 1.65 m Weight: 86.3 kg Last Vital Signs Temp 36.6 C 03/18/21 09:04 Pulse 102 H 03/18/21 09:04 Resp 18 03/18/21 09:04 BP 92/50 L 03/18/21 09:04 Pulse Ox 100 03/18/21 09:04 Allergies Allergy/AdvReac Type Severity Reaction Status Date / Time morphine Allergy Intermediate HALLUCINATE Verified 03/18/21 12:39 S Penicillins AdvReac Mild YEAST Verified 03/18/21 12:39 INFECTION Bumble Bee Allergy Intermediate SWELLING Uncoded 03/18/21 12:39 Home Medications Medication Instructions Recorded Confirmed Type albuterol sulfate [ProAir HFA] 1 inh INHALATION QID PRN #8.5 g 12/04/20 03/17/21 Rx cyanocobalamin (vitamin B-12) 1,000 mcg PO DAILY 12/04/20 03/17/21 History gabapentin 600 mg PO TID 12/04/20 03/17/21 History hydrochlorothiazide 37.5 mg PO DAILY 12/04/20 03/17/21 History hydrocodone-acetaminophen 1 tablet PO DIRECTED 12/04/20 03/17/21 History nabumetone 1,000 mg PO BID 12/04/20 03/17/21 History ondansetron HCl 4 mg PO Q6-12H PRN 12/04/20 03/17/21 History topiramate 50 mg PO TID 12/04/20 03/17/21 History aspirin [Adult Aspirin EC Low 81 mg PO DAILY 03/17/21 03/17/21 History Strength] diphenhydramine HCl [Allergy 50 mg PO QAM 03/17/21 03/17/21 History (diphenhydramine)] ferrous sulfate 325 mg PO DAILY 03/17/21 03/17/21 History sertraline 50 mg PO DAILY 03/17/21 03/17/21 History Laboratory Tests 03/18/21 12:32 POC Capillary Glucose 74 mg/dl mg/dl (65-105) Patient hx anesthesia problems: none Family hx anesthesia problems: none PMFSH Past Medical History Medical History (Updated 03/18/21 @ 09:19 by Derek Villagomez MD) Anemia Chronic GERD Depression with anxiety Diabetes No longer takes any medications since she had a gastric bypass DJD (degenerative joint disease) DVT prophylaxis Dyspepsia Hypertension No longer takes any medication for high blood pressure since she received her gastric bypass Meniere's disease Migraines Neuropathy Non-cardiac chest pain Osteoarthritis Ovarian cyst Panic disorder Rotator cuff tear rt Surgical History Surgical History (Updated 03/18/21 @ 09:19 by Derek Villagomez MD) H/O gastric bypass H/O lateral meniscus repair of right knee History of section, classical Hx of cholecystectomy Hx of total knee arthroplasty bilateral S/P rotator cuff repair Family History Family History (Updated 03/17/21 @ 06:35 by Anabel Colby NP) Father Cerebrovascular accident Hypertension Cancer Mother Hypertension Diabetes mellitus Breast cancer Other Family history of heart disease in male family member before age 55 Family history of lung disease Family history of malignant neoplasm Family history of seizure disorder Social History Social History (Updated 03/17/21 @ 06:37 by Anabel Colby NP) Social History: The patient has 2 sons and a daughter. She is . Her 1 son is staying with her at this time. Her son is the durable power trolley collector for healthcare. The patient is a full code. Patient used to smoke and she quit in 1996. 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 The patient does not use marijuana or alcohol. Smoking packs per day: 4 Smoking cigarettes per day: 80.0 Years smoked: 20 Smoking pack-years: 80.00 Smoking status: Former smoker Tobacco type: cigarettes Alcohol intake: never Substance use: never Gender identity (if verbalized by the patient): Male Spiritual care concerns: No Anes - Eval Final PreProcedure Day of Procedure 03/18/21 12:42 Patient weight: obese Heart: regular rate and rhythm Lungs: clear to auscultation and
[2021-03-18] MEDS: LACTATED RINGERS 1,000 ML 150 ML IV CONT (12:46)
--- NOTE | 2021-03-18 12:49 | PM.IMPN ---
Progress Note: A&P Assessment and Plan (1) Chest pain: Code(s): R07.9 - Chest pain, unspecified Status: Acute Assessment and Plan: Most likely acid reflux. The patient did have an elevated D-dimer but CTA was negative. ordered Pepcid for the patient as well. Troponins are negative x3. EKG was read as sinus rhythm. Will obtain a Lexiscan LEXISCAN WAS NEGATIVE FOR ISCHEMIA WILL PROCEED WITH GI CONSULT PATIENT HAS HISTORY OF GERD DISEASE (2) Depression with anxiety: Code(s): F41.8 - Other specified anxiety disorders Status: Chronic Assessment and Plan: Continue with her home medication of sertraline. (3) Cardiac murmur due to mitral valve disorder: Code(s): I34.0 - Nonrheumatic mitral (valve) insufficiency Status: Acute Assessment and Plan: 2DECHO REVIEWED (4) Interstitial lung disease: Code(s): J84.9 - Interstitial pulmonary disease, unspecified Status: Acute Assessment and Plan: Patient is unaware this diagnosis. It was noted on her CT scan. Will follow-up in outpatient setting (5) Meniere's disease: Code(s): H81.09 - Meniere's disease, unspecified ear Status: Chronic Assessment and Plan: Continue with Benadryl. Stable (6) Neuropathy: Code(s): G62.9 - Polyneuropathy, unspecified Status: Chronic Assessment and Plan: Continue with gabapentin Stable (7) Migraines: Code(s): G43.909 - Migraine, unspecified, not intractable, without status migrainosus Status: Chronic Assessment and Plan: Continue with topiramate Stable Subjective Date/time seen: 03/18/21 12:49 I FEEL BETTER Review of Systems Review of Systems: All systems reviewed & are unremarkable except as noted in HPI and below Constitutional: Constitutional: Reports as per HPI, Reports no additional constitutional complaints, Denies body ache(s), Denies chills, Denies excessive sweating, Denies fatigue, Denies fever(s), Denies headache(s), Denies lethargy, Denies malaise, Denies weakness and Denies weight loss Eyes: Eyes: Reports as per HPI, Reports no additional eye complaints, Denies blurry vision, Denies change in vision and Denies loss of vision ENT: Reports system reviewed and no additional complaints, except as documented, Reports Normal hearing present, Denies dizziness, Denies ear discharge, Denies headache(s), Denies lip swelling, Denies epistaxis, Denies nasal congestion, Denies neck pain, Denies throat swelling and Denies tongue swelling Cardiovascular: Cardiovascular: Reports no additional cardiovascular complaints, Reports chest pain, Denies chest pain with activity, Denies diaphoresis, Denies rapid heart rate, Denies edema, Denies irregular heart rhythm, Denies lightheadedness, Denies palpitations, Denies dyspnea and Denies dyspnea on exertion Respiratory: Respiratory: Reports no additional respiratory complaints, Reports no additional respiratory complaints, Denies chest congestion, Denies cough, Denies hemoptysis, Denies dyspnea and Denies dyspnea on exertion Gastrointestinal: Gastrointestinal: Reports as per HPI, Reports no additional gastrointestinal complaints, Reports abdominal pain, Denies melena, Denies hematochezia, Denies diarrhea, Reports nausea, Denies vomiting and Denies hematemesis Genitourinary: Genitourinary: Denies hematuria Musculoskeletal: Musculoskeletal: Reports no additional musculoskeletal complaints, Denies abnormal gait, Denies deformity, Denies joint swelling, Denies limited range of motion, Denies neck pain and Denies numbness Integumentary/Breasts: Skin/Breast: Reports system reviewed and no additional complaints, except as docu, Reports as per HPI and Denies dry skin Neurologic: Reports system reviewed and no additional complaints, except as documented, Reports as per HPI, Reports Normal hearing present, Denies Abnormal speech present, Denies abnormal gait, Denies confusion, David
[2021-03-18] MEDS: BENZOCAINE (*SP) 60 ML SPRAY CAN (HURRICAINE) 1 SPRAY MUCOUS MEM (13:57)
[2021-03-18] MEDS: hydroCHLOROthiazide 12.5 MG CAPSULE 37.5 MG PO (14:53)
[2021-03-18] MEDS: ASPIRIN 81 MG ENTERIC TABLET PO (14:54)
[2021-03-18] MEDS: CYANOCOBALAMIN 1,000 MCG TABLET 1000 MCG PO (14:54)
[2021-03-18] MEDS: TOPIRAMATE 25 MG TABLET 50 MG PO (14:54)
[2021-03-18] MEDS: GABAPENTIN 300 MG CAPSULE 600 MG PO (14:55)
[2021-03-18] MEDS: NABUMETONE 500 MG TABLET 1000 MG PO (14:55)
--- NOTE | 2021-03-18 15:17 | PM.DS ---
DS: Admitting Diagnosis Admitting Diagnosis Admitting Diagnosis: (1) Chest pain: Code(s): R07.9 - Chest pain, unspecified Status: Acute Assessment and Plan: Most likely acid reflux. The patient did have an elevated D-dimer but CTA was negative. I did hear a murmur and will get an echo as well. I ordered Pepcid for the patient as well. Troponins are negative x3. EKG was read as sinus rhythm. (2) Depression with anxiety: Code(s): F41.8 - Other specified anxiety disorders Status: Chronic Assessment and Plan: Continue with her home medication of sertraline. (3) Cardiac murmur due to mitral valve disorder: Code(s): I34.0 - Nonrheumatic mitral (valve) insufficiency Status: Acute Assessment and Plan: I did order an echo. The patient is on hydrochlorothiazide. (4) Interstitial lung disease: Code(s): J84.9 - Interstitial pulmonary disease, unspecified Status: Acute Assessment and Plan: Patient is unaware this diagnosis. It was noted on her CT scan. Patient also has some pulmonary hypertension so I ordered an echo. The patient is hypoxic. However she may want to follow-up with pulmonology outpatient. Continue with her inhaler albuterol. (5) Meniere's disease: Code(s): H81.09 - Meniere's disease, unspecified ear Status: Chronic Assessment and Plan: Continue with Benadryl. (6) Neuropathy: Code(s): G62.9 - Polyneuropathy, unspecified Status: Chronic Assessment and Plan: Continue with gabapentin (7) Migraines: Code(s): G43.909 - Migraine, unspecified, not intractable, without status migrainosus Status: Chronic Assessment and Plan: Continue with topiramate DS: Discharge Diagnosis Discharge Diagnosis (1) Chest pain: Code(s): R07.9 - Chest pain, unspecified Status: Acute Assessment and Plan: Most likely acid reflux. The patient did have an elevated D-dimer but CTA was negative. ordered Pepcid for the patient as well. Troponins are negative x3. EKG was read as sinus rhythm. Will obtain a Lexiscan LEXISCAN WAS NEGATIVE FOR ISCHEMIA WILL PROCEED WITH GI CONSULT PATIENT HAS HISTORY OF GERD DISEASE Patient is status post EGD no findings multiple biopsies taken. (2) Depression with anxiety: Code(s): F41.8 - Other specified anxiety disorders Status: Chronic Assessment and Plan: Continue with her home medication of sertraline. (3) Cardiac murmur due to mitral valve disorder: Code(s): I34.0 - Nonrheumatic mitral (valve) insufficiency Status: Acute Assessment and Plan: 2DECHO REVIEWED (4) Interstitial lung disease: Code(s): J84.9 - Interstitial pulmonary disease, unspecified Status: Acute Assessment and Plan: Patient is unaware this diagnosis. It was noted on her CT scan. Will follow-up in outpatient setting (5) Meniere's disease: Code(s): H81.09 - Meniere's disease, unspecified ear Status: Chronic Assessment and Plan: Continue with Benadryl. Stable (6) Neuropathy: Code(s): G62.9 - Polyneuropathy, unspecified Status: Chronic Assessment and Plan: Continue with gabapentin Stable (7) Migraines: Code(s): G43.909 - Migraine, unspecified, not intractable, without status migrainosus Status: Chronic Assessment and Plan: Continue with topiramate Stable DS: Summary Hospital Course Reason for hospitalization: Atypical chest pain Hospital Course: This is a 65-year-old female with past medical history significant for gastric bypass surgery hypertension depression and anxiety patient presented to the emergency room due to retrosternal pain patient was ruled out for acute coronary syndrome with negative serial enzymes no EKG changes an negative Lexiscan stress test. Patient was taken to endoscopy suite for EGD which was basically nonrevealing as well multiple biop
== END 2021-03-18 17:00 | disposition home or self-care (01) ==
LOC: ANHED 03-17 00:32 → ANH3MEDSUR 03-18 09:14 → ANHIMU 03-22 13:53
PROVIDERS: Internal Medicine Gastroenterology; Nurse Practitioner; Admitting Provider Family Medicine; Emergency Provider Emergency Medicine; PCP Family Medicine; Visit Provider Internal Medicine
PROC: 0DJ08ZZ Inspection of Upper Intestinal Tract, Via Natural or Artificial Opening Endoscopic (ICD-10-PCS; CPT 43235; principal; 2021-03-18 13:00)
DX: R07.89 Other chest pain (principal); R10.13 Epigastric pain; I34.0 Nonrheumatic mitral (valve) insufficiency; F41.8 Other specified anxiety disorders; G62.9 Polyneuropathy, unspecified; G43.909 Migraine, unspecified, not intractable, without status migrainosus; H81.09 Meniere's disease, unspecified ear; I10 Essential (primary) hypertension; J84.9 Interstitial pulmonary disease, unspecified; Z98.84 Bariatric surgery status; Z96.653 Presence of artificial knee joint, bilateral; Z87.891 Personal history of nicotine dependence; Z79.899 Other long term (current) drug therapy
CPT/HCPCS: 43239; 36415; 71046; 71275; 78452; 80053; 82948; 83735; 83880; 84484; 85025; 85380; 85610; 85730; 88305; 93005; 93017; 93306; 93970; 96361; 96372; 96374; 96376; 99285; A9270; A9502; G0378; J1650; J2704; J2785; J7120; Q9967

== ENCOUNTER 2021-10-05 17:05 | Outpatient (CLI) | payer OTHER, SELFPAY ==
--- NOTE | ~2021-10-05 | XR_ITS ---
EXAMINATION: HAND-FUAD ARTHRITIS 3+VIEWS DATE: 10/05/2021 18:10 INDICATION: New onset rheumatoid arthritis TECHNIQUE: 1. Posteroanterior and lateral views of the left and of the right hands as well as a ballcatchers vie w of both hands were obtained. 2. PA and lateral views of the left wrist were obtained. 3. PA and lateral views of the right wrist were obtained. COMPARISON: 09/28/2020 FINDINGS: 4 mm ulnar minus variance on both the left and right. Widening of the scapholunate interval with incr eased scapholunate angle consistent with scapholunate ligament tear/insufficiency and secondary dorsa l intercalated segment instability (DISI) at both the left and right wrists. No fracture. Mild polyar ticular osteoarthritis characterized by nonuniform joint space narrowing at the bilateral distal radi oulnar, triscaphe, first carpometacarpal and multiple interphalangeal joints. Metacarpophalangeal chloe nt spaces are relatively preserved bilaterally. Relatively symmetric lucencies at the distal aspect o f the left and right ulna which could represent degenerative subchondral cysts or erosions. Diffuse m ild soft tissue swelling about the bilateral hands and wrists most prominent along the ulnar aspect o f the wrists. IMPRESSION: 1. Relatively symmetric findings consistent with tear/insufficiency of the bilateral scapholunate lig aments with secondary dorsal intercalated segment instability (DISI). 2. Erosions at the distal aspect of both the left and right ulna which could represent degenerative s ubchondral cysts or erosions such as in the setting of reported rheumatoid arthritis. 3. Typical distribution of mild polyarticular osteoarthritis at the bilateral hands and wrists. Reviewed, dictated and finalized at location A. NTIST PROPAGATOR IMPRESSION: 1. Relatively symmetric findings consistent with tear/insufficiency of the bila teral scapholunate ligaments with secondary dorsal intercalated segment instabi lity (DISI). 2. Erosions at the distal aspect of both the left and right ulna which could re present degenerative subchondral cysts or erosions such as in the setting of re ported rheumatoid arthritis. 3. Typical distribution of mild polyarticular osteoarthritis at the bilateral h ands and wrists. IMPRESSION: 1. Relatively symmetric findings consistent with tear/insufficiency of the bila teral scapholunate ligaments with secondary dorsal intercalated segment instabi lity (DISI). 2. Erosions at the distal aspect of both the left and right ulna which could re present degenerative subchondral cysts or erosions such as in the setting of re ported rheumatoid arthritis. 3. Typical distribution of mild polyarticular osteoarthritis at the bilateral h ands and wrists.
--- NOTE | ~2021-10-05 | XR_ITS ---
EXAMINATION: XR foot LT 2V, XR foot RT 2V DATE: 10/05/2021 18:10 INDICATION: New onset rheumatoid arthritis TECHNIQUE: 1. Dorsoplantar and lateral views of the left foot were obtained. 2. Dorsoplantar and lateral views of the right foot were obtained. COMPARISON: Left foot radiographs dated 11/18/2019 FINDINGS: Normal alignment at the bilateral feet. No fractures. Mild polyarticular osteoarthritis throughout michela th feet characterized by mild nonuniform joint space narrowing and/or tiny marginal osteophytes. This demonstrates a typical distribution most prominent at the bilateral first metatarsophalangeal, multi ple tarsal metatarsal and interphalangeal joints and at the right navicular cuneiform joint. Some sub articular lucencies along the bilateral tarsometatarsal joints could be related to degenerative subch ondral cysts or potentially erosions given the provided history of rheumatoid arthritis. Bilateral sm all Achilles calcaneal and moderate plantar calcaneal spurs. IMPRESSION: 1. Mild polyarticular osteoarthritis in the bilateral mid and forefeet. 2. Subarticular lucencies along several of the bilateral tarsometatarsal joints which could represent degenerative subchondral cysts or potentially erosions cyst in the setting of either rheumatoid or g out. Reviewed, dictated and finalized at location A. MAKER FLOOR IMPRESSION: 1. Mild polyarticular osteoarthritis in the bilateral mid and forefeet. 2. Subarticular lucencies along several of the bilateral tarsometatarsal joints which could represent degenerative subchondral cysts or potentially erosions c yst in the setting of either rheumatoid or gout.
[2021-10-05 17:53] LABS: Basophils Absolute Auto 0.1 K/mm3 (0.0-0.1); Basophils Percent Auto 0.6 % (0.2-1.2); Eosinophils Absolute Auto 0.1 K/mm3 (0-0.3); Eosinophils Percent Auto 1.3 % (0-4.4); Hemoglobin 13.3 g/dL (12.0-15.0); Immature Granulocyte Absolute 0.04 K/mm3 (0.00-0.031); Immature Granulocyte Percent A 0.4 % (0-0.5); Lymphocytes Absolute Auto 2.13 K/mm3 (0.9-3.2); Lymphocytes Percent Auto 20.2 % (18.3-44.2); Mean Corpuscular HGB Conc 32.4 g/dl (32-36); Mean Corpuscular Hemoglobin 30.4 pg (26-34); Mean Corpuscular Volume 93.6 fl (80-100); Mean Platelet Volume 10.4 fl (7.4-10.4); Monocytes Absolute Auto 1.1 K/mm3 (0.1-0.6); Monocytes Percent Auto 10.3 % (2.6-8.5); Neutrophils Absolute Auto 7.1 K/mm3 (1.3-6.7); Neutrophils Percent Auto 67.2 % (45.5-73.1); Platelet Count Result 250 k/mm3 (150-375); Red Blood Count 4.38 M/mm3 (4.2-5.4); White Blood Count 10.5 K/mm3 (4.5-10.0)
[2021-10-05 18:11] LABS: Add Urine Microscopic? YES; Appearance Urine Clear (Clear); Bilirubin Urine Negative (Negative); Blood Urine Negative (Negative); Color Urine Yellow (Yellow); Glucose Urine UA Negative (Negative); Ketones Urine Negative (Negative); Leukocyte Esterase Ur 3+ LEU/UL (NEGATIVE); Nitrate Urine Negative (Negative); Protein Urine Negative (Negative); RBC Urine 0-2 /hpf (0-2); Specific Grav Ur 1.017 (1.001-1.035); Squamous Epithelial Cell Urine Few /hpf (Few); WBC Urine 21-30 /hpf (0-3)
[2021-10-05 18:12] LABS: Alanine Aminotransferase 20 U/L (4-35); Albumin Level 4.3 g/dL (3.5-5.1); Alkaline Phosphatase 71 U/L (38-126); Anion Gap 10 mmol/L (8-16); Aspartate Amino Transferase 25 U/L (14-36); Bilirubin,Total 0.5 mg/dL (0.2-1.3); Blood Urea Nitrogen 35 mg/dL (7-17); CRP < 0.5 mg/dL (<1.0); Calcium 10.4 mg/dL (8.4-10.2); Carbon Dioxide 24 mmol/L (22-30); Chloride 103 mmol/L (98-107); Creatine Kinase 21 U/L (30-135); Estimated Glomerular Filt Rate 50; Glucose 99 mg/dL (65-110); Potassium 3.6 mmol/L (3.4-5.0); Sodium 137 mmol/L (137-145)
[2021-10-05 18:33] LABS: Complement C3 115 mg/dL (88-165); Rheumatoid Factor < 8.6 IU/ML (<12)
[2021-10-05 18:34] LABS: Erythrocyte Sedimentation Rate 18 mm/hr (0-20)
[2021-10-05 19:12] LABS: Hepatitis B Surface Antigen Negative (Negative)
[2021-10-05 19:30] LABS: Hepatitis B Surface Anti Res Negative; Hepatitis C Virus Antibody Negative (Negative)
[2021-10-07 20:18] LABS: G-6-PD, RBC 12.7 U/g Hgb (7.0-20.5)
[2021-10-07 21:19] LABS: SM Antibody <1.0; SM/RNP Antibody <1.0; SS-A <1.0; SS-B <1.0
[2021-10-09 10:28] LABS: NIL 0.01 IU/mL; Quantiferon TB Plus, 1T NEGATIVE (NEGATIVE); TB1-NIL 0.02 IU/mL; TB2-NIL 0.01 IU/mL
[2021-10-10 12:48] LABS: Aldolase 2.8 U/L (<=8.1)
== END 2021-10-05 17:06 | disposition home or self-care (01) ==
LOC: ANHLAB 17:10
PROVIDERS: PCP Family Medicine
DX: M06.9 Rheumatoid arthritis, unspecified (principal); M15.9 Polyosteoarthritis, unspecified; M85.89 Other specified disorders of bone density and structure, multiple sites
CPT/HCPCS: 36415; 73100; 73130; 73620; 80053; 81001; 82085; 82550; 82955; 84443; 85025; 85652; 86140; 86160; 86225; 86235; 86430; 86480; 86706; 86803; 87340

== ENCOUNTER 2022-07-05 18:37 | Emergency (ER) | payer OTHER, SELFPAY ==
--- NOTE | 2022-07-05 18:39 | ED.SKABFB ---
HPI - Skin/Abscess/Foreign Bdy General Chief complaint: Skin/Abscess/Foreign Body Stated complaint: facial rash Time Seen by Provider: 07/05/22 18:44 Source: patient and RN notes reviewed Mode of arrival: ambulatory Limitations: no limitations History of Present Illness HPI narrative: 67-year-old female presents to the [facility] with complaints of a rash to her face. Patient reports that she woke up this morning with redness and darkened areas to both temporal areas of her face. Symptoms have since resolved. Patient denies any fevers. Was not painful, itching or burning. Related Data Home Medications Medication Instructions Recorded Confirmed cyanocobalamin (vitamin B-12) 1,000 mcg PO DAILY 12/04/20 07/05/22 1,000 mcg tablet gabapentin 300 mg capsule 600 mg PO TID 12/04/20 07/05/22 nabumetone 750 mg tablet 1,000 mg PO BID 12/04/20 07/05/22 ondansetron HCl 4 mg tablet 4 mg PO Q6-12H PRN Nausea 12/04/20 07/05/22 topiramate 50 mg tablet 50 mg PO TID 12/04/20 07/05/22 aspirin 81 mg tablet,delayed 81 mg PO DAILY 03/17/21 07/05/22 release diphenhydramine HCl 25 mg tablet 50 mg PO QAM 03/17/21 03/21/22 (Allergy (diphenhydramine)) ferrous sulfate 325 mg (65 mg 325 mg PO DAILY 03/17/21 07/05/22 iron) tablet,delayed release hydrocodone 10 mg-acetaminophen 1 tablet PO Q8H PRN Pain 03/21/22 07/05/22 325 mg tablet leflunomide 20 mg tablet (Arava) 20 mg PO DAILY 04/13/22 07/05/22 prednisone 10 mg tablet 10 mg PO DAILY 04/13/22 07/05/22 famotidine 20 mg tablet 20 mg PO DAILY 07/05/22 07/05/22 folic acid 1 mg tablet 1 mg PO DAILY 07/05/22 07/05/22 sertraline 100 mg tablet 200 mg PO DAILY 07/05/22 07/05/22 triamterene 37.5 1 tablet PO DAILY 07/05/22 07/05/22 mg-hydrochlorothiazide 25 mg tablet Allergies Allergy/AdvReac Type Severity Reaction Status Date / Time morphine Allergy Intermediate HALLUCINATE Verified 07/05/22 18:59 S Penicillins AdvReac Mild YEAST Verified 07/05/22 18:59 INFECTION Bumble Bee Allergy Intermediate SWELLING Uncoded 07/05/22 18:59 Review of Systems Review of Systems: All systems reviewed & are unremarkable except as noted in HPI and below Constitutional: Constitutional: Reports no additional constitutional complaints, Denies chills and Denies fever(s) Eyes: Eyes: Reports no additional eye complaints ENT: Reports system reviewed and no additional complaints, except as documented Cardiovascular: Cardiovascular: Reports no additional cardiovascular complaints Respiratory: Respiratory: Reports no additional respiratory complaints Gastrointestinal: Gastrointestinal: Reports no additional gastrointestinal complaints Musculoskeletal: Musculoskeletal: Reports no additional musculoskeletal complaints Integumentary/Breasts: Skin/Breast: Reports as per HPI Neurologic: Reports system reviewed and no additional complaints, except as documented Psychiatric: Psychiatric: Reports no additional psychiatric complaints Allergic/Immunologic: Allergic/Immunologic: Reports no additional allergic/immunologic complaints PMFSH Past Medical History Medical History Anemia Chronic GERD Depression with anxiety Diabetes No longer takes any medications since she had a gastric bypass DJD (degenerative joint disease) DVT prophylaxis Dyspepsia Hypertension No longer takes any medication for high blood pressure since she received her gastric bypass Meniere's disease Migraines Neuropathy Non-cardiac chest pain Osteoarthritis Ovarian cyst Panic disorder Rotator cuff tear rt Surgical History Surgical History H/O gastric bypass H/O lateral meniscus repair of right knee History of section, classical Hx of cholecystectomy Hx of total knee arthroplasty bilateral S/P rotator cuff repair Family History Family History Fa
[2022-07-05 18:47] VITALS: BP 131/102; PULSE 59; RESP 16; TEMP 36.4; O2SAT 100
== END 2022-07-05 19:10 | disposition home or self-care (01) ==
PROVIDERS: Emergency Provider Nurse Practitioner; PCP Family Medicine
DX: Z03.89 Encounter for observation for other suspected diseases and conditions ruled out (principal); Z87.891 Personal history of nicotine dependence; K21.9 Gastro-esophageal reflux disease without esophagitis; M19.90 Unspecified osteoarthritis, unspecified site; Z98.84 Bariatric surgery status; Z96.653 Presence of artificial knee joint, bilateral; D64.9 Anemia, unspecified; F41.8 Other specified anxiety disorders
CPT/HCPCS: 99211; G0463

== ENCOUNTER 2022-09-19 14:17 | Outpatient (CLI) | payer OTHER, SELFPAY ==
--- NOTE | ~2022-09-19 | XR_ITS ---
XR chest 2V DATE: 09/19/2022 14:40 INDICATION: Chest pain, shortness of breath TECHNIQUE: PA and lateral views COMPARISON: 03/16/2021 CTA chest 03/16/2021 PA and lateral chest FINDINGS: There is chronic mild bibasilar infiltrate, atelectasis or fibrotic change, which appears r elatively stable since 03/16/2021. Lungs otherwise appear clear. No pleural effusion or pulmonary vasc ular congestion or pneumothorax. Normal heart size. Osteopenia. Degenerative spurring of the thoracic and lumbar spine. Surgical clips, right upper quadrant, consistent with cholecystectomy. IMPRESSION: Chronic mild bibasilar infiltrate, atelectasis and/or fibrotic change, relatively stable since 03/16/2021 Reviewed, dictated and finalized at location A. IMPRESSION: Chronic mild bibasilar infiltrate, atelectasis and/or fibrotic cardenas ge, relatively stable since 03/16/2021
== END 2022-09-19 14:18 | disposition home or self-care (01) ==
LOC: ANHIMG 14:25
PROVIDERS: PCP Family Medicine
DX: M06.9 Rheumatoid arthritis, unspecified (principal); M35.00 Sjogren syndrome, unspecified; K13.79 Other lesions of oral mucosa; Z79.52 Long term (current) use of systemic steroids; Z51.81 Encounter for therapeutic drug level monitoring; R91.8 Other nonspecific abnormal finding of lung field
CPT/HCPCS: 71046

== ENCOUNTER 2022-09-20 19:03 | Observation (INO) | payer OTHER, SELFPAY ==
[2022-09-20] VITALS (25 sets, daily range): BP systolic 124–152; BP diastolic 59–91; PULSE 79–102; RESP 11–30; TEMP 37.1–39.2; O2SAT 93–100
--- NOTE | ~2022-09-20 | CT_ITS ---
EXAMINATION: CT brain wo con DATE: 09/21/2022 02:01 INDICATION: Transient ischemic attack. TECHNIQUE: Computed tomography (CT) of the head was performed without intravenous contrast. The mA wa s adjusted according to patient size. Iterative reconstruction technique was employed. The dose-lengt h product was 605.33 mGy-cm. COMPARISON: Head CT 06/10/2013 FINDINGS: There are scattered areas of low attenuation in the cerebral white matter. There is no intr acranial hemorrhage, acute infarction, or abnormal intracranial mass lesion. The ventricles are kaylynn l in size. There is mild mucosal thickening in the paranasal sinuses. The mastoid air cells are kaylynn l. There are likely changes of ocular lens replacement surgeries. IMPRESSION: 1. Worsened mild nonspecific cerebral white matter disease, which likely represents chronic small ves christian ischemic disease. Reviewed, dictated and finalized at location A. IMPRESSION: 1. Worsened mild nonspecific cerebral white matter disease, which likely repres ents chronic small vessel ischemic disease.
--- NOTE | ~2022-09-20 | XR_ITS ---
EXAMINATION: XR chest 2V Exam Date/Time: 09/20/2022 20:06 CDT HISTORY: AMS, FEVER Comparison: 09/19/2022. RESULT: Lines, tubes, and devices: Right humeral head soft tissue anchors. Lungs and pleura: Low volumes. Streaky and linear opacities in the bilateral lower lungs. Cardiomediastinal silhouette: Stable. Other: No acute osseous or upper abdominal finding. IMPRESSION: Bibasilar atelectasis/consolidation. Reviewed, dictated and finalized at location K.
[2022-09-20 19:16] LABS: Glucose Point of Care 87 mg/dl (65-105)
--- NOTE | 2022-09-20 19:18 | ECG_ITS ---
Measurements Intervals [place] Rate: 88 P: 13 ID: [id number] QRS: 19 QRSD: 118 T: 31 QT: 354 QTc: 429 Interpretive Statements SINUS RHYTHM CONSIDER INFERIOR INFARCT, AGE INDETERMINATE BASELINE ARTIFACT- V3 ABNORMAL ECG COMPARED TO ECG 03/16/2021 22:55:36 NO SIGNIFICANT CHANGES Electronically Signed On 09-20-2022 21:06:47 CDT by Elias Ling D.O.
[2022-09-20 19:31] LABS: Basophils Absolute Auto 0.1 K/mm3 (0.0-0.1); Basophils Percent Auto 0.6 % (0.2-1.2); Eosinophils Absolute Auto 0.1 K/mm3 (0-0.3); Eosinophils Percent Auto 0.9 % (0-4.4); Hematocrit 43.6 % (37.0-47.0); Hemoglobin 14.1 g/dL (12.0-15.0); Immature Granulocyte Absolute 0.05 K/mm3 (0.00-0.031); Immature Granulocyte Percent A 0.4 % (0-0.5); Lymphocytes Absolute Auto 0.68 K/mm3 (0.9-3.2); Lymphocytes Percent Auto 5.4 % (18.3-44.2); Mean Corpuscular HGB Conc 32.3 g/dl (32-36); Mean Corpuscular Hemoglobin 30.5 pg (26-34); Mean Corpuscular Volume 94.4 fl (80-100); Mean Platelet Volume 10.6 fl (7.4-10.4); Monocytes Absolute Auto 1.1 K/mm3 (0.1-0.6); Monocytes Percent Auto 8.8 % (2.6-8.5); Neutrophils Absolute Auto 10.5 K/mm3 (1.3-6.7); Neutrophils Percent Auto 83.9 % (45.5-73.1); Platelet Count Result 161 k/mm3 (150-375); Red Blood Count 4.62 M/mm3 (4.2-5.4); Red Cell Distribution Width 13.8 % (11.5-14.5); White Blood Count 12.6 K/mm3 (4.5-10.0)
[2022-09-20] MEDS: SODIUM CHLORIDE 0.9% IV 1,000 ML 999 ML IV CONT ×2 (19:38→20:41)
[2022-09-20 19:40] LABS: Lactic Acid Reflex 1.1 mmol/L (0.7-2.0)
--- NOTE | 2022-09-20 19:40 | ED.AMS ---
HPI - Altered Mental Status General Chief Complaint: Altered Mental Status Stated Complaint: CONFUSED FOUND ON SIDE OF ROAD. Time Seen by Provider: 09/20/22 19:05 History of Present Illness HPI narrative: Patient is a 67-year-old female who presents ER with altered mental status. Apparently at 130 today patient's boss noted that she started acting more confused. By 4 PM he decided to let her leave work. Patient had been in contact with family earlier in the day because she was planning to meet them in [facility] for a granddaughters birthday alliance party. They cannot get in contact with the mother and realized that she had been laid off of work. They are able to track her phone and found her near the [place]. Patient has had increasing confusion and is now having difficulty walking due to this. Patient is alert and oriented x2-3 but cannot give an explanation what is been occurring today. Found to be febrile here. No known sick contacts. Patient is coughing. No history of stroke. Related Data Home Medications Medication Instructions Recorded Confirmed cyanocobalamin (vitamin B-12) 1,000 mcg PO DAILY 12/04/20 07/05/22 1,000 mcg tablet gabapentin 300 mg capsule 600 mg PO TID 12/04/20 07/05/22 nabumetone 750 mg tablet 1,000 mg PO BID 12/04/20 07/05/22 ondansetron HCl 4 mg tablet 4 mg PO Q6-12H PRN Nausea 12/04/20 07/05/22 topiramate 50 mg tablet 50 mg PO TID 12/04/20 07/05/22 aspirin 81 mg tablet,delayed 81 mg PO DAILY 03/17/21 07/05/22 release diphenhydramine HCl 25 mg tablet 50 mg PO QAM 03/17/21 03/21/22 (Allergy (diphenhydramine)) ferrous sulfate 325 mg (65 mg 325 mg PO DAILY 03/17/21 07/05/22 iron) tablet,delayed release hydrocodone 10 mg-acetaminophen 1 tablet PO Q8H PRN Pain 03/21/22 07/05/22 325 mg tablet leflunomide 20 mg tablet (Arava) 20 mg PO DAILY 04/13/22 07/05/22 prednisone 10 mg tablet 10 mg PO DAILY 04/13/22 07/05/22 famotidine 20 mg tablet 20 mg PO DAILY 07/05/22 07/05/22 folic acid 1 mg tablet 1 mg PO DAILY 07/05/22 07/05/22 sertraline 100 mg tablet 200 mg PO DAILY 07/05/22 07/05/22 triamterene 37.5 1 tablet PO DAILY 07/05/22 07/05/22 mg-hydrochlorothiazide 25 mg tablet Allergies Allergy/AdvReac Type Severity Reaction Status Date / Time morphine Allergy Intermediate HALLUCINATE Verified 09/20/22 19:18 S Penicillins AdvReac Mild YEAST Verified 09/20/22 19:18 INFECTION Bumble Bee Allergy Intermediate SWELLING Uncoded 07/05/22 18:59 Review of Systems Review of Systems: ROS unobtainable: Yes unobtainable due to medical condition PMFSH Past Medical History Medical History (Updated 09/21/22 @ 05:39 by Abdullahi Thompson MD) Anemia Chronic GERD Depression with anxiety Diabetes No longer takes any medications since she had a gastric bypass DJD (degenerative joint disease) DVT prophylaxis Dyspepsia Hypertension No longer takes any medication for high blood pressure since she received her gastric bypass Meniere's disease Migraines Neuropathy Non-cardiac chest pain Osteoarthritis Ovarian cyst Panic disorder Rotator cuff tear rt Surgical History Surgical History H/O gastric bypass H/O lateral meniscus repair of right knee History of section, classical Hx of cholecystectomy Hx of total knee arthroplasty bilateral S/P rotator cuff repair Family History Family History Father Cerebrovascular accident Hypertension Cancer Mother Hypertension Diabetes mellitus Breast cancer Other Family history of heart disease in male family member before age 55 Family history of lung disease Family history of malignant neoplasm Family history of seizure disorder Social History Social History Social History: The patient has 2 sons and a daughter. She is . Her 1 son is staying with h
[2022-09-20 19:46] LABS: Alanine Aminotransferase 25 U/L (6-35); Albumin Level 4.5 g/dL (3.5-5.1); Alkaline Phosphatase 63 U/L (38-126); Anion Gap 12 mmol/L (8-16); Aspartate Amino Transferase 35 U/L (14-36); Blood Urea Nitrogen 18 mg/dL (7-17); CRP 3.6 mg/dL (<1.0); Calcium 9.6 mg/dL (8.4-10.2); Carbon Dioxide 24 mmol/L (22-30); Chloride 97 mmol/L (98-107); Estimated Glomerular Filt Rate 50; Glucose 102 mg/dL (65-110); Potassium 3.6 mmol/L (3.4-5.0); Sodium 133 mmol/L (137-145)
[2022-09-20 20:01] LABS: Appearance Urine Clear (Clear); Bilirubin Urine Negative (Negative); Blood Urine Negative (Negative); Color Urine Yellow (Yellow); Glucose Urine UA Negative (Negative); Ketones Urine Negative (Negative); Leukocyte Esterase Ur 1+ LEU/UL (Negative); Nitrate Urine Positive (Negative); Protein Urine Negative (Negative); Specific Grav Ur 1.015 (1.001-1.035)
[2022-09-20 20:04] LABS: Prothrombin Time 12.9 Seconds (11.1-14.7)
[2022-09-20 20:05] LABS: Partial Thromboplastin Time 30.9 SECONDS (22.3-36.8)
[2022-09-20 20:07] LABS: Squamous Epithelial Cell Urine Rare /hpf (Few)
[2022-09-20 20:10] LABS: Add Urine Microscopic? YES
[2022-09-20 20:35] LABS: Influenza A QL RT-PCR Negative (Negative); Influenza B QL RT-PCR Negative (Negative); SARS-CoV-2 RNA PCR Negative
--- NOTE | 2022-09-20 23:10 | PM.IMHP ---
H&P: HPI History of Present Illness Date/Time: 09/20/22 23:10 Chief Complaint: altered mental status Narrative: This is a 67-year-old female with past medical history significant for GERD, Meniere's disease, migraine headache, diabetes, hypertension, DJD. Most of the history has been obtained upon reviewing medical records and sister who is at bedside. patient had been complaining of a dry cough and not feeling well overall went to work and was sent home she was found in the wrong side of town not acting herself and was brought to the emergency room for evaluation. Patient is unable to give much history she complains of a frontal headache but has no recollection of events. Preliminary workup was significant for a chest x-ray was reported as: IMPRESSION: Bibasilar atelectasis/consolidation. Review of Systems Review of Systems: altered mental status, confusion, cough, headache, ROS unobtainable: Yes unobtainable due to mental status ( confused) PMFSH Past Medical History Medical History (Updated 09/21/22 @ 02:57 by Carri Ritchie MD) Anemia Chronic GERD Depression with anxiety Diabetes No longer takes any medications since she had a gastric bypass DJD (degenerative joint disease) DVT prophylaxis Dyspepsia Hypertension No longer takes any medication for high blood pressure since she received her gastric bypass Meniere's disease Migraines Neuropathy Non-cardiac chest pain Osteoarthritis Ovarian cyst Panic disorder Rotator cuff tear rt Surgical History Surgical History H/O gastric bypass H/O lateral meniscus repair of right knee History of section, classical Hx of cholecystectomy Hx of total knee arthroplasty bilateral S/P rotator cuff repair Family History Family History Father Cerebrovascular accident Hypertension Cancer Mother Hypertension Diabetes mellitus Breast cancer Other Family history of heart disease in male family member before age 55 Family history of lung disease Family history of malignant neoplasm Family history of seizure disorder Social History Social History Social History: The patient has 2 sons and a daughter. She is . Her 1 son is staying with her at this time. Her son is the durable power deputy prosecuting attorney for healthcare. The patient is a full code. Patient used to smoke and she quit in 1996. 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 The patient does not use marijuana or alcohol. Smoking packs per day: 4 Smoking cigarettes per day: 80.0 Years smoked: 20 Smoking pack-years: 80.00 Smoking status: Never smoker Tobacco type: cigarettes Alcohol intake: never Substance use: never Gender identity (if verbalized by the patient): Male Spiritual care concerns: No Meds Home Medications and Allergies Home Medications Medication Instructions Recorded Confirmed Type albuterol sulfate 90 mcg/actuation 1 inh inhalation QID PRN shortness 12/04/20 07/05/22 Rx aerosol inhaler (ProAir HFA) of breath or wheezing #8.5 grams cyanocobalamin (vitamin B-12) 1,000 mcg PO DAILY 12/04/20 07/05/22 History 1,000 mcg tablet gabapentin 300 mg capsule 600 mg PO TID 12/04/20 07/05/22 History nabumetone 750 mg tablet 1,000 mg PO BID 12/04/20 07/05/22 History ondansetron HCl 4 mg tablet 4 mg PO Q6-12H PRN Nausea 12/04/20 07/05/22 History topiramate 50 mg tablet 50 mg PO TID 12/04/20 07/05/22 History aspirin 81 mg tablet,delayed 81 mg PO DAILY 03/17/21 07/05/22 History release diphenhydramine HCl 25 mg tablet 50 mg PO QAM 03/17/21 03/21/22 History (Allergy (diphenhydramine)) ferrous sulfate 325 mg (65 mg 325 mg PO DAILY 03/17/21 07/05/22 History iron) tablet,delayed release hydrocodone 10 mg-acetaminophen 1 tablet PO Q8H PRN Pain 03/21/22 07/05/22 History 3
[2022-09-21] VITALS (8 sets, daily range): BP systolic 133–156; BP diastolic 67–110; PULSE 70–102; RESP 16–30; TEMP 36.6–37.4; O2SAT 92–97; BMI 35.7
[2022-09-21] MEDS: SODIUM CHLORIDE 0.9% IV 1,000 ML 125 ML IV CONT ×2 (09:43→16:44)
--- NOTE | 2022-09-21 11:30 | PM.IMPN ---
Progress Note: A&P Assessment and Plan (1) Sepsis: Code(s): A41.9 - Sepsis, unspecified organism Status: Acute Assessment and Plan: Patient meets sepsis criteria with fever, tachycardia, tachypnea, source of infection Source of infection appears to be renal Lactic acid 1.1 IV fluid hydration in the ED, continue fluids at 125ml/hr IV ceftriaxone and azithromycin started Blood cultures pending Urine culture pending WBCs 17.6 Continue trend labs (2) Lung consolidation: Code(s): J18.1 - Lobar pneumonia, unspecified organism Status: Acute Assessment and Plan: Chest x-ray shows bibasilar atelectasis consolidation Continue Rocephin and azithromycin Sputum culture ordered Repeat chest xray in 2 days Blood cultures ordered WBC 12.6 Continue to trend labs (3) Abnormal urinalysis: Code(s): R82.90 - Unspecified abnormal findings in urine Status: Acute Assessment and Plan: UA did appear infectious with positive nitrates Currently on ceftriaxone will continue Awaiting urine culture Adjust antibiotics per sensitivities (4) Acute metabolic encephalopathy: Code(s): G93.41 - Metabolic encephalopathy Status: Acute Assessment and Plan: Patient presented confused and was found walking around not in her area Probably related to UTI or infection Head CT showed no abnormalities Continue to trend Seems better today (5) Migraines: Code(s): G43.909 - Migraine, unspecified, not intractable, without status migrainosus Status: Chronic Assessment and Plan: Continue home Topamax (6) Hypertension: Code(s): I10 - Essential (primary) hypertension Status: Acute Assessment and Plan: BP 142/67 Continue home medications triamterene-HCTZ Trend blood pressure Adjust therapy as indicated (7) Diabetes: Code(s): E11.9 - Type 2 diabetes mellitus without complications Status: Acute Assessment and Plan: Glucose is 102 today No home medications Trend glucose daily Adjust therapy as indicated (8) Rheumatoid arthritis: Code(s): M06.9 - Rheumatoid arthritis, unspecified Status: Acute Assessment and Plan: Continue home medications Follow up with outpatient services Time Spent With Patient Time with patient: Greater than 35 minutes Subjective Date/time seen: 09/21/22 1130 Interval history: 09/21/22 1130 Patient stated that she is doing okay today. She still does not know what happened to her and why she was found any [place]. She stated that she lives in [place] and works in at [employer]. She does have a cough which she stated started about a couple of days ago. She also complains of pleuritic chest pain and states that it only affects her when she does cough. She denies any chest pain, shortness a breath, nausea, vomiting, diarrhea, constipation, weakness or fatigue. She did state that she has swelling in left leg however she stated that is pretty chronic for her. Updated family about plan of care. 09/20/22? 23:10 ?This is a 67-year-old female with past medical history significant for GERD, Meniere's disease, migraine headache, diabetes, hypertension, DJD.? Most of the history has been obtained upon reviewing medical records and sister who is at bedside. patient had been complaining of a dry cough and not feeling well overall went to? work and was sent home she was found in the? wrong side of? town not acting herself? and was brought to the emergency room for evaluation.? Patient is unable to give much history she complains of a frontal headache but has no recollection of events.? Review of Systems Review of Systems: All systems reviewed & are unremarkable except as noted in HPI and below Exam Const: General: comfortable, no ac
--- NOTE | 2022-09-21 11:30 | P.PNIM_ITS ---
Progress Note: A&P Assessment and Plan (1) Sepsis: Code(s): A41.9 - Sepsis, unspecified organism Status: Acute Assessment and Plan: * Patient meets sepsis criteria with fever, tachycardia, tachypnea, source of i nfection * Source of infection appears to be renal * Lactic acid 1.1 * IV fluid hydration in the ED, continue fluids at 125ml/hr * IV ceftriaxone and azithromycin started * Blood cultures pending * Urine culture pending * WBCs 17.6 * Continue trend labs (2) Lung consolidation: Code(s): J18.1 - Lobar pneumonia, unspecified organism Status: Acute Assessment and Plan: * Chest x-ray shows bibasilar atelectasis consolidation * Continue Rocephin and azithromycin * Sputum culture ordered * Repeat chest xray in 2 days * Blood cultures ordered * WBC 12.6 * Continue to trend labs (3) Abnormal urinalysis: Code(s): R82.90 - Unspecified abnormal findings in urine Status: Acute Assessment and Plan: * UA did appear infectious with positive nitrates * Currently on ceftriaxone will continue * Awaiting urine culture * Adjust antibiotics per sensitivities (4) Acute metabolic encephalopathy: Code(s): G93.41 - Metabolic encephalopathy Status: Acute Assessment and Plan: * Patient presented confused and was found walking around not in her area * Probably related to UTI or infection * Head CT showed no abnormalities * Continue to trend * Seems better today (5) Migraines: Code(s): G43.909 - Migraine, unspecified, not intractable, without status migrainosus Status: Chronic Assessment and Plan: * Continue home Topamax (6) Hypertension: Code(s): I10 - Essential (primary) hypertension Status: Acute Assessment and Plan: * BP 142/67 * Continue home medications triamterene-HCTZ * Trend blood pressure * Adjust therapy as indicated (7) Diabetes: Code(s): E11.9 - Type 2 diabetes mellitus without complications Status: Acute Assessment and Plan: * Glucose is 102 today * No home medications * Trend glucose daily * Adjust therapy as indicated (8) Rheumatoid arthritis: Code(s): M06.9 - Rheumatoid arthritis, unspecified Status: Acute Assessment and Plan: * Continue home medications * Follow up with outpatient services Time Spent With Patient Time with patient: Greater than 35 minutes Subjective Date/time seen: 09/21/22 1130 Interval history: 09/21/221129 Patient stated that she is doing okay today. She still does not know what happened to her and why she was found any [place]. She stated that she lives in [place] and works in at [employer]. She does have a cough which she stated started about a couple of days ago. She also complains of pleuritic chest pain and states that it only affects her when she does cough. She denies any chest pain, shortness a breath, nausea, vomiting, diarrhea, constipation, weakness or fatigue. She did state that she has swelling in left leg however she stated that is pretty chronic for her. Updated family about plan of care. 09/20/22? 23:10 ?This is a 67-year-old female with past medical history significant for GERD,
[2022-09-21] MEDS: TOPIRAMATE 25 MG TABLET 50 MG PO ×2 (12:45→18:33)
[2022-09-21] MEDS: ENOXAPARIN 40 MG/0.4 ML SYRINGE SUB-Q (16:40)
[2022-09-21 19:48] LABS: Toxigenic C. Diff NEGATIVE (NEGATIVE)
[2022-09-22] MEDS: SODIUM CHLORIDE 0.9% IV 1,000 ML 125 ML IV CONT (01:20)
[2022-09-22 05:31] VITALS: BP 155/73; PULSE 74; RESP 20; TEMP 36.4; O2SAT 96
[2022-09-22] MEDS: ACETAMINOPHEN 325 MG TABLET 650 MG PO ×2 (05:36→23:31)
[2022-09-22 09:04] LABS: Basophils Absolute Auto 0.1 K/mm3 (0.0-0.1); Basophils Percent Auto 0.9 % (0.2-1.2); Eosinophils Percent Auto 0.6 % (0-4.4); Hematocrit 41.3 % (37.0-47.0); Hemoglobin 13.3 g/dL (12.0-15.0); Immature Granulocyte Absolute 0.03 K/mm3 (0.00-0.031); Immature Granulocyte Percent A 0.4 % (0-0.5); Lymphocytes Absolute Auto 0.39 K/mm3 (0.9-3.2); Lymphocytes Percent Auto 5.5 % (18.3-44.2); Mean Corpuscular HGB Conc 32.2 g/dl (32-36); Mean Corpuscular Hemoglobin 30.5 pg (26-34); Mean Corpuscular Volume 94.7 fl (80-100); Mean Platelet Volume 10.5 fl (7.4-10.4); Monocytes Absolute Auto 0.9 K/mm3 (0.1-0.6); Monocytes Percent Auto 12.7 % (2.6-8.5); Neutrophils Absolute Auto 5.6 K/mm3 (1.3-6.7); Neutrophils Percent Auto 79.9 % (45.5-73.1); Platelet Count Result 145 k/mm3 (150-375); Red Blood Count 4.36 M/mm3 (4.2-5.4); Red Cell Distribution Width 13.7 % (11.5-14.5)
[2022-09-22] MEDS: ENOXAPARIN 40 MG/0.4 ML SYRINGE SUB-Q (09:12)
[2022-09-22] MEDS: SERTRALINE HCL 50 MG TABLET 200 MG PO (09:13)
[2022-09-22] MEDS: CYANOCOBALAMIN 1,000 MCG TABLET 1000 MCG PO (09:14)
[2022-09-22] MEDS: TOPIRAMATE 25 MG TABLET 50 MG PO ×3 (09:14→16:18)
[2022-09-22] MEDS: predniSONE 10 MG TABLET PO (09:15)
[2022-09-22] MEDS: FERROUS SULFATE 324 MG TABLET PO (09:15)
[2022-09-22] MEDS: FOLIC ACID 1 MG TABLET PO (09:15)
[2022-09-22] MEDS: LEFLUNOMIDE 20 MG TABLET PO (09:15)
[2022-09-22] MEDS: ASPIRIN 81 MG ENTERIC TABLET PO (09:15)
[2022-09-22] MEDS: TRIAMTERENE 37.5 MG/HCTZ 25 MG (MAXZIDE) TABLET 1 TAB PO (09:15)
[2022-09-22] MEDS: FAMOTIDINE 20 MG TABLET PO (09:15)
--- NOTE | 2022-09-22 09:15 | P.PNIM_ITS ---
Progress Note: A&P Assessment and Plan (1) Sepsis: Code(s): A41.9 - Sepsis, unspecified organism Status: Acute Assessment and Plan: * Patient meets sepsis criteria with fever, tachycardia, tachypnea, source of i nfection * Source of infection appears to be renal * Lactic acid 1.1 * IV fluid hydration in the ED, continue fluids at 125ml/hr * IV ceftriaxone and azithromycin continued * Blood cultures pending * Urine culture grew e. coli * WBCs 7.0 * Continue trend labs (2) Lung consolidation: Code(s): J18.1 - Lobar pneumonia, unspecified organism Status: Acute Assessment and Plan: * Chest x-ray shows bibasilar atelectasis consolidation * Continue Rocephin and azithromycin * Sputum culture ordered * Repeat chest xray in 2 days * Blood cultures ordered * WBC trending down 7.0 * Continue to trend labs (3) Abnormal urinalysis: Code(s): R82.90 - Unspecified abnormal findings in urine Status: Acute Assessment and Plan: * UA did appear infectious with positive nitrates * Currently on ceftriaxone will continue * Culture grew Ecoli, change patient to cefdinir per sensitivities * Adjust antibiotics per sensitivities (4) Acute metabolic encephalopathy: Code(s): G93.41 - Metabolic encephalopathy Status: Acute Assessment and Plan: * Patient presented confused and was found walking around not in her area * Probably related to UTI or infection * Head CT showed no abnormalities * Continue to trend * Resolved (5) Migraines: Code(s): G43.909 - Migraine, unspecified, not intractable, without status migrainosus Status: Chronic Assessment and Plan: * Continue home Topamax (6) Hypertension: Code(s): I10 - Essential (primary) hypertension Status: Acute Assessment and Plan: * BP 127/64 * Continue home medications triamterene-HCTZ * Trend blood pressure * Adjust therapy as indicated (7) Diabetes: Code(s): E11.9 - Type 2 diabetes mellitus without complications Status: Acute Assessment and Plan: * Glucose is 80 today * No home medications * Trend glucose daily * Adjust therapy as indicated (8) Rheumatoid arthritis: Code(s): M06.9 - Rheumatoid arthritis, unspecified Status: Acute Assessment and Plan: * Continue home medications * Follow up with outpatient services Time Spent With Patient Time with patient: Greater than 35 minutes Subjective Date/time seen: 09/22/22914 Interval history: 09/22/22914 Patient was resting comfortably. She is having a lot of diarrhea, however, it is from the antibiotics. Mag and K is low. Replaced. She denies any chest pain, shortness of breath, nausea, vomiting, diarrhea, weakness, fatigue. She has a steady gate. Will have her stay to continue to trend the labs. 09/21/22 1130 Patient stated that she is doing okay today. She still does not know what happened to her and why she was found any [place]. She stated that she lives in [place] and works in at [employer]. She does have a cough which she stated started about a couple of days ago. She also complains of pleuritic chest pain and states that it only affects her when sh
--- NOTE | 2022-09-22 09:15 | PM.IMPN ---
Progress Note: A&P Assessment and Plan (1) Sepsis: Code(s): A41.9 - Sepsis, unspecified organism Status: Acute Assessment and Plan: Patient meets sepsis criteria with fever, tachycardia, tachypnea, source of infection Source of infection appears to be renal Lactic acid 1.1 IV fluid hydration in the ED, continue fluids at 125ml/hr IV ceftriaxone and azithromycin continued Blood cultures pending Urine culture grew e. coli WBCs 7.0 Continue trend labs (2) Lung consolidation: Code(s): J18.1 - Lobar pneumonia, unspecified organism Status: Acute Assessment and Plan: Chest x-ray shows bibasilar atelectasis consolidation Continue Rocephin and azithromycin Sputum culture ordered Repeat chest xray in 2 days Blood cultures ordered WBC trending down 7.0 Continue to trend labs (3) Abnormal urinalysis: Code(s): R82.90 - Unspecified abnormal findings in urine Status: Acute Assessment and Plan: UA did appear infectious with positive nitrates Currently on ceftriaxone will continue Culture grew Ecoli, change patient to cefdinir per sensitivities Adjust antibiotics per sensitivities (4) Acute metabolic encephalopathy: Code(s): G93.41 - Metabolic encephalopathy Status: Acute Assessment and Plan: Patient presented confused and was found walking around not in her area Probably related to UTI or infection Head CT showed no abnormalities Continue to trend Resolved (5) Migraines: Code(s): G43.909 - Migraine, unspecified, not intractable, without status migrainosus Status: Chronic Assessment and Plan: Continue home Topamax (6) Hypertension: Code(s): I10 - Essential (primary) hypertension Status: Acute Assessment and Plan: BP 127/64 Continue home medications triamterene-HCTZ Trend blood pressure Adjust therapy as indicated (7) Diabetes: Code(s): E11.9 - Type 2 diabetes mellitus without complications Status: Acute Assessment and Plan: Glucose is 80 today No home medications Trend glucose daily Adjust therapy as indicated (8) Rheumatoid arthritis: Code(s): M06.9 - Rheumatoid arthritis, unspecified Status: Acute Assessment and Plan: Continue home medications Follow up with outpatient services Time Spent With Patient Time with patient: Greater than 35 minutes Subjective Date/time seen: 09/22/22914 Interval history: 09/22/22914 Patient was resting comfortably. She is having a lot of diarrhea, however, it is from the antibiotics. Mag and K is low. Replaced. She denies any chest pain, shortness of breath, nausea, vomiting, diarrhea, weakness, fatigue. She has a steady gate. Will have her stay to continue to trend the labs. 09/21/22 1130 Patient stated that she is doing okay today. She still does not know what happened to her and why she was found any [place]. She stated that she lives in [place] and works in at [employer]. She does have a cough which she stated started about a couple of days ago. She also complains of pleuritic chest pain and states that it only affects her when she does cough. She denies any chest pain, shortness a breath, nausea, vomiting, diarrhea, constipation, weakness or fatigue. She did state that she has swelling in left leg however she stated that is pretty chronic for her. Updated family about plan of care. 09/20/22? 23:10 ?This is a 67-year-old female with past medical history significant for GERD, Meniere's disease, migraine headache, diabetes, hypertension, DJD.? Most of the history has been obtained upon reviewing medical records and sister who is at bedside. patient had been complaining of a dry cough and not feeling well overall went to? work and was sent home she was found
[2022-09-22 09:22] LABS: Alanine Aminotransferase 29 U/L (6-35); Albumin Level 3.6 g/dL (3.5-5.1); Alkaline Phosphatase 61 U/L (38-126); Anion Gap 12 mmol/L (8-16); Aspartate Amino Transferase 33 U/L (14-36); Bilirubin,Total 0.7 mg/dL (0.2-1.3); Blood Urea Nitrogen 13 mg/dL (7-17); Calcium 9.2 mg/dL (8.4-10.2); Carbon Dioxide 22 mmol/L (22-30); Chloride 101 mmol/L (98-107); Estimated CRCL calculation 63 ml/min; Estimated Glomerular Filt Rate > 60; Glucose 80 mg/dL (65-110); Magnesium 1.3 mg/dL (1.6-2.3); Potassium 2.6 mmol/L (3.4-5.0); Sodium 135 mmol/L (137-145)
--- NOTE | 2022-09-22 09:30 | P.DS_ITS ---
DS: Admitting Diagnosis Discharge Date 09/23/22929 Admitting Diagnosis Sepsis, PNA, UTI DS: Discharge Diagnosis Discharge Diagnosis (1) Sepsis: Code(s): A41.9 - Sepsis, unspecified organism Status: Acute Assessment and Plan: * Patient meets sepsis criteria with fever, tachycardia, tachypnea, source of infection * Source of infection appears to be renal * Lactic acid 1.1 * IV fluid hydration in the ED, continue fluids at 125ml/hr * IV ceftriaxone and azithromycin started * Blood cultures pending * Urine culture grew Ecoli * Change antibiotics to PO azithromycin and cefdinir * WBCs 5.1 * Continue trend labs (2) Lung consolidation: Code(s): J18.1 - Lobar pneumonia, unspecified organism Status: Acute Assessment and Plan: * Chest x-ray shows bibasilar atelectasis consolidation * Continue Rocephin and azithromycin * Sputum culture ordered * Repeat chest xray in 2 days * Blood cultures NGTD * WBC trending down 5.1 * Continue to trend labs (3) Abnormal urinalysis: Code(s): R82.90 - Unspecified abnormal findings in urine Status: Acute Assessment and Plan: * UA did appear infectious with positive nitrates * Currently on ceftriaxone will continue * Culture grew Ecoli, change patient to cefdinir per sensitivities * Adjust antibiotics per sensitivities (4) Acute metabolic encephalopathy: Code(s): G93.41 - Metabolic encephalopathy Status: Acute Assessment and Plan: * Patient presented confused and was found walking around not in her area * Probably related to UTI or infection * Head CT showed no abnormalities * Continue to trend * Resolved (5) Migraines: Code(s): G43.909 - Migraine, unspecified, not intractable, without status migrainosus Status: Chronic Assessment and Plan: * Continue home Topamax (6) Hypertension: Code(s): I10 - Essential (primary) hypertension Status: Acute Assessment and Plan: * BP 154/75 * Continue home medications triamterene-HCTZ * Trend blood pressure * Adjust therapy as indicated (7) Diabetes: Code(s): E11.9 - Type 2 diabetes mellitus without complications Status: Acute Assessment and Plan: * Glucose is 80 today * No home medications * Trend glucose daily * Adjust therapy as indicated (8) Rheumatoid arthritis: Code(s): M06.9 - Rheumatoid arthritis, unspecified Status: Acute Assessment and Plan: * Continue home medications * Follow up with outpatient services DS: Summary Hospital Course Hospital Course: Patient is 67-year-old female with a past medical history of GERD, Meniere's disease, migraine headaches, diabetes, hypertension, DJD, anemia who presented to the ED with complaints of confusion. Patient stated that she has been having a dry cough for the last couple days. However patient was found in [facility]. Upon arrival to the ED patient was noted to have white blood cell count of 12.6, and is currently tending down. She stated that she was not having any problems urinating, however, UA did appear to be infectious. Chest xray indicated consolidation, and was started on IV ceftriaxone and azithromycin. Urine culture
--- NOTE | 2022-09-22 09:30 | PM.DS ---
DS: Admitting Diagnosis Discharge Date 09/23/22929 Admitting Diagnosis Sepsis, PNA, UTI DS: Discharge Diagnosis Discharge Diagnosis (1) Sepsis: Code(s): A41.9 - Sepsis, unspecified organism Status: Acute Assessment and Plan: Patient meets sepsis criteria with fever, tachycardia, tachypnea, source of infection Source of infection appears to be renal Lactic acid 1.1 IV fluid hydration in the ED, continue fluids at 125ml/hr IV ceftriaxone and azithromycin started Blood cultures pending Urine culture grew Ecoli Change antibiotics to PO azithromycin and cefdinir WBCs 5.1 Continue trend labs (2) Lung consolidation: Code(s): J18.1 - Lobar pneumonia, unspecified organism Status: Acute Assessment and Plan: Chest x-ray shows bibasilar atelectasis consolidation Continue Rocephin and azithromycin Sputum culture ordered Repeat chest xray in 2 days Blood cultures NGTD WBC trending down 5.1 Continue to trend labs (3) Abnormal urinalysis: Code(s): R82.90 - Unspecified abnormal findings in urine Status: Acute Assessment and Plan: UA did appear infectious with positive nitrates Currently on ceftriaxone will continue Culture grew Ecoli, change patient to cefdinir per sensitivities Adjust antibiotics per sensitivities (4) Acute metabolic encephalopathy: Code(s): G93.41 - Metabolic encephalopathy Status: Acute Assessment and Plan: Patient presented confused and was found walking around not in her area Probably related to UTI or infection Head CT showed no abnormalities Continue to trend Resolved (5) Migraines: Code(s): G43.909 - Migraine, unspecified, not intractable, without status migrainosus Status: Chronic Assessment and Plan: Continue home Topamax (6) Hypertension: Code(s): I10 - Essential (primary) hypertension Status: Acute Assessment and Plan: BP 154/75 Continue home medications [id number]-[id number] Trend blood pressure Adjust therapy as indicated (7) Diabetes: Code(s): E11.9 - Type 2 diabetes mellitus without complications Status: Acute Assessment and Plan: Glucose is 80 today No home medications Trend glucose daily Adjust therapy as indicated (8) Rheumatoid arthritis: Code(s): M06.9 - Rheumatoid arthritis, unspecified Status: Acute Assessment and Plan: Continue home medications Follow up with outpatient services DS: Summary Hospital Course Hospital Course: Patient is 67-year-old female with a past medical history of GERD, Meniere's disease, migraine headaches, diabetes, hypertension, DJD, anemia who presented to the ED with complaints of confusion. Patient stated that she has been having a dry cough for the last couple days. However patient was found in [facility]. Upon arrival to the ED patient was noted to have white blood cell count of 12.6, and is currently tending down. She stated that she was not having any problems urinating, however, UA did appear to be infectious. Chest xray indicated consolidation, and was started on IV ceftriaxone and azithromycin. Urine culture did grow E.Coli, which would be covered by the ceftriaxone. Patient is stable at this time. Labs and vital signs stable. Mag and K have been noted to be low and have been replaced accordingly. Patient will be discharged on cefdinir and a z-pack for further coverage. She denies any chest pain, shortness of breath, nausea, vomiting, diarrhea, constipation, weakness, or fatigue. She did have a headache, however resolved with home medications. Time Spent with Patient Time attestation: Total time spent providing and/or coordinating discharge services: Exam Const: General: comfortable, no acute distress, well developed,
[2022-09-22] MEDS: MAGNESIUM SULF 4 GM/WATER100ML 4 GM/100 ML BAG IVPB (10:41)
[2022-09-22] MEDS: POTASSIUM CHLORIDE 20 MEQ PACKET (FOR LIQUID) 40 MEQ PO (10:53)
[2022-09-22] MEDS: HYDROcodone/acetaminophen (*CRX) 5-325 MG TABLET 1 TAB PO ×3 (10:54→22:11)
[2022-09-22] MEDS: POTASSIUM CHLORIDE 20 MEQ TABLET 40 MEQ PO ×2 (10:58→16:18)
[2022-09-22] MEDS: NABUMETONE 500 MG TABLET 1000 MG PO ×2 (12:15→16:18)
[2022-09-22 14:00] VITALS: BP 127/64; PULSE 70; RESP 20; TEMP 36.5; O2SAT 97
[2022-09-22] MEDS: GABAPENTIN 300 MG CAPSULE 600 MG PO ×2 (14:50→22:11)
[2022-09-22 15:57] LABS: Potassium 3.1 mmol/L (3.4-5.0)
[2022-09-22 22:00] VITALS: BP 152/75; PULSE 60; RESP 16; TEMP 36.8; O2SAT 97
[2022-09-22] MEDS: diphenhydrAMINE HCl CAP 25 MG CAPSULE 50 MG PO (22:11)
[2022-09-22 22:25] VITALS: O2SAT 97
[2022-09-23] MEDS: GABAPENTIN 300 MG CAPSULE 600 MG PO (05:53)
[2022-09-23 06:00] VITALS: BP 154/75; PULSE 59; RESP 16; TEMP 36.9; O2SAT 98
[2022-09-23 06:40] LABS: Basophils Absolute Auto 0.1 K/mm3 (0.0-0.1); Basophils Percent Auto 1.4 % (0.2-1.2); Eosinophils Absolute Auto 0.1 K/mm3 (0-0.3); Eosinophils Percent Auto 2.2 % (0-4.4); Hematocrit 38.4 % (37.0-47.0); Hemoglobin 12.2 g/dL (12.0-15.0); Immature Granulocyte Absolute 0.02 K/mm3 (0.00-0.031); Immature Granulocyte Percent A 0.4 % (0-0.5); Lymphocytes Absolute Auto 0.88 K/mm3 (0.9-3.2); Lymphocytes Percent Auto 17.4 % (18.3-44.2); Mean Corpuscular HGB Conc 31.8 g/dl (32-36); Mean Corpuscular Hemoglobin 30.4 pg (26-34); Mean Corpuscular Volume 95.8 fl (80-100); Mean Platelet Volume 11.1 fl (7.4-10.4); Monocytes Absolute Auto 0.9 K/mm3 (0.1-0.6); Monocytes Percent Auto 18.1 % (2.6-8.5); Neutrophils Absolute Auto 3.1 K/mm3 (1.3-6.7); Neutrophils Percent Auto 60.5 % (45.5-73.1); Nucleated Red Blood Cells Perc 0.4 % (0.0-0.2); Platelet Count Result 151 k/mm3 (150-375); Red Blood Count 4.01 M/mm3 (4.2-5.4); Red Cell Distribution Width 13.8 % (11.5-14.5); White Blood Count 5.1 K/mm3 (4.5-10.0)
[2022-09-23 06:47] LABS: Alanine Aminotransferase 27 U/L (6-35); Albumin Level 3.4 g/dL (3.5-5.1); Alkaline Phosphatase 54 U/L (38-126); Anion Gap 8 mmol/L (8-16); Aspartate Amino Transferase 32 U/L (14-36); Bilirubin,Total 0.6 mg/dL (0.2-1.3); Blood Urea Nitrogen 13 mg/dL (7-17); Calcium 9.3 mg/dL (8.4-10.2); Carbon Dioxide 21 mmol/L (22-30); Chloride 108 mmol/L (98-107); Estimated CRCL calculation 57 ml/min; Estimated Glomerular Filt Rate 56; Glucose 80 mg/dL (65-110); Magnesium 2.1 mg/dL (1.6-2.3); Potassium 3.3 mmol/L (3.4-5.0); Sodium 137 mmol/L (137-145)
[2022-09-23] MEDS: SERTRALINE HCL 50 MG TABLET 200 MG PO (09:18)
[2022-09-23] MEDS: ENOXAPARIN 40 MG/0.4 ML SYRINGE SUB-Q (09:18)
[2022-09-23] MEDS: LEFLUNOMIDE 20 MG TABLET PO (09:18)
[2022-09-23] MEDS: predniSONE 10 MG TABLET PO (09:19)
[2022-09-23] MEDS: CYANOCOBALAMIN 1,000 MCG TABLET 1000 MCG PO (09:19)
[2022-09-23] MEDS: ASPIRIN 81 MG ENTERIC TABLET PO (09:19)
[2022-09-23] MEDS: NABUMETONE 500 MG TABLET 1000 MG PO (09:19)
[2022-09-23] MEDS: FERROUS SULFATE 324 MG TABLET PO (09:19)
[2022-09-23] MEDS: TOPIRAMATE 25 MG TABLET 50 MG PO (09:20)
[2022-09-23] MEDS: TRIAMTERENE 37.5 MG/HCTZ 25 MG (MAXZIDE) TABLET 1 TAB PO (09:20)
[2022-09-23] MEDS: FAMOTIDINE 20 MG TABLET PO (09:20)
[2022-09-23] MEDS: FOLIC ACID 1 MG TABLET PO (09:20)
[2022-09-23] MEDS: LORATADINE/PSEUDOEPHEDRINE (*CRX) 10/240 MG TABLET ER 24 HR 1 TAB PO (09:41)
== END 2022-09-23 14:32 | disposition home or self-care (01) ==
LOC: ANHED 19:58 → ANH3MEDSUR 09-22 08:50
PROVIDERS: Nurse Practitioner; Admitting Provider Internal Medicine; Emergency Provider Emergency Medicine; PCP Family Medicine; Visit Provider Hospitalist
DX: A41.9 Sepsis, unspecified organism (principal); J18.1 Lobar pneumonia, unspecified organism; R82.71 Bacteriuria; B96.29 Other Escherichia coli [E. coli] as the cause of diseases classified elsewhere; G93.41 Metabolic encephalopathy; G43.909 Migraine, unspecified, not intractable, without status migrainosus; M06.9 Rheumatoid arthritis, unspecified; I10 Essential (primary) hypertension; E11.9 Type 2 diabetes mellitus without complications; R90.82 White matter disease, unspecified; D64.9 Anemia, unspecified; Z20.822 Contact with and (suspected) exposure to COVID-19; K21.9 Gastro-esophageal reflux disease without esophagitis; H81.09 Meniere's disease, unspecified ear; J98.11 Atelectasis; F41.8 Other specified anxiety disorders; R94.31 Abnormal electrocardiogram [ECG] [EKG]; Z98.84 Bariatric surgery status; Z87.891 Personal history of nicotine dependence; Z79.82 Long term (current) use of aspirin; Z79.891 Long term (current) use of opiate analgesic; Z79.52 Long term (current) use of systemic steroids; Z82.49 Family history of ischemic heart disease and other diseases of the circulatory system; Z79.899 Other long term (current) drug therapy; Z83.6 Family history of other diseases of the respiratory system; Z82.0 Family history of epilepsy and other diseases of the nervous system
CPT/HCPCS: 36415; 70450; 71046; 80053; 81001; 82948; 83605; 83735; 84132; 85025; 85610; 85730; 86140; 87040; 87077; 87086; 87186; 87493; 87502; 93005; 96361; 96365; 96367; 96372; 96374; 96375; 99285; A9270; G0378; J0131; J0456; J0696; J1650; J3475; J7030; J7512; U0003; U0005

== ENCOUNTER 2023-01-02 16:17 | Outpatient (CLI) | payer OTHER, SELFPAY ==
--- NOTE | ~2023-01-02 | XR_ITS ---
EXAMINATION: XR chest 2V Exam Date/Time: 01/02/2023 16:31 ZMT OPERATOR HISTORY: RHEUMATOID ARTHRITIS UNSPECIFIED, SJOGREN SYNDROME, OTHER LE Comparison: 09/20/2022. RESULT: Lines, tubes, and devices: Right humeral head soft tissue anchors. Lungs and pleura: Bibasilar scar/atelectasis, otherwise clear. Cardiomediastinal silhouette: Stable. Other: No acute osseous or upper abdominal finding. IMPRESSION: No acute cardiopulmonary process. Reviewed, dictated and finalized at location K. OPERATOR
== END 2023-01-02 16:18 | disposition home or self-care (01) ==
PROVIDERS: PCP Family Medicine
DX: M06.9 Rheumatoid arthritis, unspecified (principal); K13.79 Other lesions of oral mucosa; Z51.81 Encounter for therapeutic drug level monitoring; Z79.52 Long term (current) use of systemic steroids
CPT/HCPCS: 71046

== ENCOUNTER 2023-10-10 11:23 | Emergency (ER) | payer OTHER, SELFPAY ==
--- NOTE | ~2023-10-10 | XR_ITS ---
EXAMINATION: XR chest 2V DATE: 10/10/2023 12:06 INDICATION: Productive cough. TECHNIQUE: Frontal and lateral views of the chest were obtained. COMPARISON: Chest 2 views 01/02/2023, chest CT 03/16/2021 FINDINGS: There is mild scarring in left lower lung zone. No pleural effusion or pneumothorax. The he art size is normal. There are surgical clips in the abdomen. IMPRESSION: 1. Mild scarring in left lower lung zone. Reviewed, dictated and finalized at location E. AND TUBE STRAIGHTENER
--- NOTE | 2023-10-10 11:31 | ED.GENADULT ---
HPI - General Adult General Chief complaint: Upper Respiratory Infection Stated complaint: Cough Time Seen by Provider: 10/10/23 11:45 Source: patient, RN notes reviewed and old records reviewed Mode of arrival: ambulatory Limitations: no limitations History of Present Illness HPI narrative: 68-year-old female presents to the [facility] with complaints of a cough for 2 weeks. Patient reports that she was evaluated at [facility] and diagnosed with bronchitis. Patient is strongly concern for pneumonia. Requesting a chest x-ray. States that she has been taking her promethazine DM cough medicine and not getting any better. Onset (ago): week(s) (2) Related Data Home Medications Medication Instructions Recorded Confirmed cyanocobalamin (vitamin B-12) 1,000 mcg PO DAILY 12/04/20 09/21/22 1,000 mcg tablet ondansetron HCl 4 mg tablet 4 mg PO Q6-12H PRN Nausea 12/04/20 09/21/22 topiramate 50 mg tablet 50 mg PO TID 12/04/20 09/21/22 diphenhydramine HCl 25 mg tablet 50 mg PO QAM 03/17/21 09/21/22 (Allergy (diphenhydramine)) ferrous sulfate 325 mg (65 mg 325 mg PO DAILY 03/17/21 09/21/22 iron) tablet,delayed release hydrocodone 10 mg-acetaminophen 1 tablet PO Q8H PRN Pain 03/21/22 09/21/22 325 mg tablet leflunomide 20 mg tablet (Arava) 20 mg PO DAILY 04/13/22 09/21/22 famotidine 20 mg tablet 20 mg PO DAILY 07/05/22 09/21/22 folic acid 1 mg tablet 1 mg PO DAILY 07/05/22 09/21/22 sertraline 100 mg tablet 200 mg PO DAILY 07/05/22 09/21/22 triamterene 37.5 1 tablet PO DAILY 07/05/22 09/21/22 mg-hydrochlorothiazide 25 mg tablet promethazine 10/10/23 10/10/23 Allergies Allergy/AdvReac Type Severity Reaction Status Date / Time morphine Allergy Intermediate HALLUCINATE Verified 10/10/23 11:25 S Penicillins AdvReac Mild YEAST Verified 10/10/23 11:25 INFECTION Bumble Bee Allergy Intermediate SWELLING Uncoded 10/10/23 11:25 Review of Systems Review of Systems: All systems reviewed & are unremarkable except as noted in HPI and below Constitutional: Constitutional: Reports no additional constitutional complaints Eyes: Eyes: Reports no additional eye complaints ENT: Reports system reviewed and no additional complaints, except as documented Cardiovascular: Cardiovascular: Reports no additional cardiovascular complaints, Denies chest pain and Denies dyspnea Respiratory: Respiratory: Reports as per HPI, Reports chest congestion, Reports cough and Denies dyspnea Gastrointestinal: Gastrointestinal: Reports no additional gastrointestinal complaints, Denies abdominal pain, Denies nausea and Denies vomiting Musculoskeletal: Musculoskeletal: Reports no additional musculoskeletal complaints Integumentary/Breasts: Skin/Breast: Reports system reviewed and no additional complaints, except as docu Neurologic: Reports system reviewed and no additional complaints, except as documented Psychiatric: Psychiatric: Reports no additional psychiatric complaints Allergic/Immunologic: Allergic/Immunologic: Reports no additional allergic/immunologic complaints PMFSH Past Medical History Medical History Anemia Chronic GERD Depression with anxiety Diabetes No longer takes any medications since she had a gastric bypass DJD (degenerative joint disease) DVT prophylaxis Dyspepsia Hypertension No longer takes any medication for high blood pressure since she received her gastric bypass Meniere's disease Migraines Neuropathy Non-cardiac chest pain Osteoarthritis Ovarian cyst Panic disorder Rotator cuff tear rt Surgical History Surgical History H/O gastric bypass H/O lateral meniscus repair of right knee History of section, classical Hx of cholecystectomy Hx of total knee arthroplasty bilateral S/P rotator cuff repair Family History Family History (Reviewed 10/10/23 @ 18:50 by Rose Marie Conde AP
[2023-10-10 11:35] VITALS: BP 149/135; PULSE 101; RESP 18; TEMP 36.7; O2SAT 98
--- NOTE | 2023-10-10 11:51 | PC.NURSE ---
change management consultant requested cxr before resp. tx
[2023-10-10] MEDS: LEVALBUTEROL NEB 1.25 MG/3 ML INHALATION (12:06)
[2023-10-10] MEDS: IPRATROPIUM BR 0.02% INH SOLN 0.5 MG/2.5 ML VIAL INHALATION (12:06)
[2023-10-10 12:30] VITALS: PULSE 87; RESP 18; O2SAT 97
== END 2023-10-10 12:30 | disposition home or self-care (01) ==
PROVIDERS: Emergency Provider Nurse Practitioner; PCP Family Medicine
DX: J40 Bronchitis, not specified as acute or chronic (principal); Z87.891 Personal history of nicotine dependence; D64.9 Anemia, unspecified; G21.9 Secondary parkinsonism, unspecified; F41.8 Other specified anxiety disorders; M19.90 Unspecified osteoarthritis, unspecified site; Z98.84 Bariatric surgery status; Z96.653 Presence of artificial knee joint, bilateral
CPT/HCPCS: 71046; 94640; 99213; G0463

== ENCOUNTER 2023-10-27 09:32 | Emergency (ER) | payer OTHER, SELFPAY ==
[2023-10-27 09:44] VITALS: BP 143/78; PULSE 93; RESP 18; TEMP 36.2; O2SAT 95
--- NOTE | 2023-10-27 10:54 | ED.LOWEXIN ---
HPI - Extremity Injury (Lower) General Chief Complaint: Extremity Injury, Lower Stated Complaint: Right Foot Pain Time Seen by Provider: 10/27/23 10:39 Source: patient and RN notes reviewed Mode of arrival: wheelchair Limitations: no limitations History of Present Illness HPI Narrative: Patient presents today complaining of a 2 day history of right foot pain. Denies injury or trauma. Denies numbness or tingling. She currently rates her pain 8/10 and has been taking her home [place] without relief. Related Data Home Medications Medication Instructions Recorded Confirmed cyanocobalamin (vitamin B-12) 1,000 mcg PO DAILY 12/04/20 10/27/23 1,000 mcg tablet ondansetron HCl 4 mg tablet 4 mg PO Q6-12H PRN Nausea 12/04/20 10/27/23 topiramate 50 mg tablet 50 mg PO TID 12/04/20 10/27/23 diphenhydramine HCl 25 mg tablet 50 mg PO QAM 03/17/21 10/27/23 (Allergy (diphenhydramine)) ferrous sulfate 325 mg (65 mg 325 mg PO DAILY 03/17/21 10/27/23 iron) tablet,delayed release hydrocodone 10 mg-acetaminophen 1 tablet PO Q8H PRN Pain 03/21/22 10/27/23 325 mg tablet leflunomide 20 mg tablet (Arava) 20 mg PO DAILY 04/13/22 10/27/23 famotidine 20 mg tablet 20 mg PO DAILY 07/05/22 10/27/23 folic acid 1 mg tablet 1 mg PO DAILY 07/05/22 10/27/23 sertraline 100 mg tablet 200 mg PO DAILY 07/05/22 10/27/23 triamterene 37.5 1 tablet PO DAILY 07/05/22 10/27/23 mg-hydrochlorothiazide 25 mg tablet Allergies Allergy/AdvReac Type Severity Reaction Status Date / Time morphine Allergy Intermediate HALLUCINATE Verified 10/27/23 09:57 S Penicillins AdvReac Mild YEAST Verified 10/27/23 09:57 INFECTION Bumble Bee Allergy Intermediate SWELLING Uncoded 10/27/23 09:57 Review of Systems Review of Systems: CONSTITUTIONAL: Denies body aches, fever, chills, or sweats. EYES: Denies visual changes, redness, or discharge. ENT: Denies rhinorrhea, congestion, sore throat, or otalgia. CARDIOVASCULAR: Denies chest pain, palpitations, or edema. RESPIRATORY: Denies cough or dyspnea. GASTROINTESTINAL: Denies abdominal pain, nausea, vomiting, or diarrhea. GENITOURINARY: Denies dysuria or hematuria. SKIN: Denies rash, itching, or wounds. MUSCULOSKELETAL: + right foot pain NEUROLOGIC: Denies headache, numbness, tingling, or weakness. PSYCH: Denies depression or anxiety. [facility] Past Medical History Medical History Anemia Chronic GERD Depression with anxiety Diabetes No longer takes any medications since she had a gastric bypass DJD (degenerative joint disease) DVT prophylaxis Dyspepsia Hypertension No longer takes any medication for high blood pressure since she received her gastric bypass Meniere's disease Migraines Neuropathy Non-cardiac chest pain Osteoarthritis Ovarian cyst Panic disorder Rotator cuff tear rt Surgical History Surgical History H/O gastric bypass H/O lateral meniscus repair of right knee History of section, classical Hx of cholecystectomy Hx of total knee arthroplasty bilateral S/P rotator cuff repair Family History Family History Father Cerebrovascular accident Hypertension Cancer Mother Hypertension Diabetes mellitus Breast cancer Other Family history of heart disease in male family member before age 55 Family history of lung disease Family history of malignant neoplasm Family history of seizure disorder Social History Social History Social History: The patient has 2 sons and a daughter. She is . Her 1 son is staying with her at this time. Her son is the durable power research attorney for healthcare. The patient is a full code. Patient used to smoke and she quit in 1996. 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 The patient d
== END 2023-10-27 11:03 | disposition short-term general hospital (02) ==
PROVIDERS: Emergency Provider Nurse Practitioner; PCP Family Medicine
DX: M79.671 Pain in right foot (principal); E11.9 Type 2 diabetes mellitus without complications; I10 Essential (primary) hypertension; F17.210 Nicotine dependence, cigarettes, uncomplicated; Z79.899 Other long term (current) drug therapy; Z79.891 Long term (current) use of opiate analgesic
CPT/HCPCS: 99212; G0463

== ENCOUNTER 2023-10-27 11:22 | Emergency (ER) | payer OTHER, SELFPAY ==
[2023-10-27] VITALS (8 sets, daily range): BP systolic 126–152; BP diastolic 69–88; PULSE 70–74; RESP 17–20; TEMP 37.4; O2SAT 93–100
--- NOTE | ~2023-10-27 | US_ITS ---
EXAMINATION:US venous doppler LE RT INDICATION:Leg swelling TECHNIQUE: Multiple grayscale, color flow and Doppler images of the right lower extremity deep venous systems were obtained and reviewed. COMPARISON:No prior studies for comparison. FINDINGS: The common femoral, superficial femoral and popliteal veins demonstrate normal respiratory variation, augmentation and compressibility. Color flow is also seen within the posterior tibial, pe roneal, greater saphenous and profunda veins. IMPRESSION: 1: No lower extremity deep venous thrombosis. Reviewed, dictated and finalized at location B. OMIC CONSULTANT
--- NOTE | ~2023-10-27 | XR_ITS ---
XR foot RT min 3V 10/27/2023 15:18 Indication: Right foot pain Procedure: 4 views right foot Comparison: 10/05/2021 Findings: There are degenerative calcaneal enthesophytes. There is moderate polyarticular osteoarthri tis. Lisfranc joint intact. No significant soft tissue abnormality. No foreign bodies. Impression: 1: Polyarticular osteoarthritis. Reviewed, dictated and finalized at location B. PROCESSING MACHINE OPERATOR Impression: 1: Polyarticular osteoarthritis.
--- NOTE | 2023-10-27 14:42 | ED.EXTPRO ---
HPI - Extremity Problem General Chief complaint: Extremity Problem,Nontraumatic Stated complaint: lower leg pain and swelling Time Seen by Provider: 10/27/23 14:22 History of Present Illness HPI Narrative: 68-year-old female presenting emergency right foot and leg pain. Patient states 2 days ago she started having increased pain and the right foot Related Data Home Medications Medication Instructions Recorded Confirmed cyanocobalamin (vitamin B-12) 1,000 mcg PO DAILY 12/04/20 10/27/23 1,000 mcg tablet ondansetron HCl 4 mg tablet 4 mg PO Q6-12H PRN Nausea 12/04/20 10/27/23 topiramate 50 mg tablet 50 mg PO TID 12/04/20 10/27/23 diphenhydramine HCl 25 mg tablet 50 mg PO QAM 03/17/21 10/27/23 (Allergy (diphenhydramine)) ferrous sulfate 325 mg (65 mg 325 mg PO DAILY 03/17/21 10/27/23 iron) tablet,delayed release hydrocodone 10 mg-acetaminophen 1 tablet PO Q8H PRN Pain 03/21/22 10/27/23 325 mg tablet leflunomide 20 mg tablet (Arava) 20 mg PO DAILY 04/13/22 10/27/23 famotidine 20 mg tablet 20 mg PO DAILY 07/05/22 10/27/23 folic acid 1 mg tablet 1 mg PO DAILY 07/05/22 10/27/23 sertraline 100 mg tablet 200 mg PO DAILY 07/05/22 10/27/23 triamterene 37.5 1 tablet PO DAILY 07/05/22 10/27/23 mg-hydrochlorothiazide 25 mg tablet Allergies Allergy/AdvReac Type Severity Reaction Status Date / Time morphine Allergy Intermediate HALLUCINATE Verified 10/27/23 14:31 S Penicillins AdvReac Mild YEAST Verified 10/27/23 14:31 INFECTION Bumble Bee Allergy Intermediate SWELLING Uncoded 10/27/23 09:57 Review of Systems Review of Systems: All systems reviewed & are unremarkable except as noted in HPI and below PMFSH Past Medical History Medical History Anemia Chronic GERD Depression with anxiety Diabetes No longer takes any medications since she had a gastric bypass DJD (degenerative joint disease) DVT prophylaxis Dyspepsia Hypertension No longer takes any medication for high blood pressure since she received her gastric bypass Meniere's disease Migraines Neuropathy Non-cardiac chest pain Osteoarthritis Ovarian cyst Panic disorder Rotator cuff tear rt Surgical History Surgical History H/O gastric bypass H/O lateral meniscus repair of right knee History of section, classical Hx of cholecystectomy Hx of total knee arthroplasty bilateral S/P rotator cuff repair Family History Family History Father Cerebrovascular accident Hypertension Cancer Mother Hypertension Diabetes mellitus Breast cancer Other Family history of heart disease in male family member before age 55 Family history of lung disease Family history of malignant neoplasm Family history of seizure disorder Social History Social History Social History: The patient has 2 sons and a daughter. She is . Her 1 son is staying with her at this time. Her son is the durable power assistant attorney general for healthcare. The patient is a full code. Patient used to smoke and she quit in 1996. 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 The patient does not use marijuana or alcohol. Smoking packs per day: 4 Smoking cigarettes per day: 80.0 Years smoked: 20 Smoking pack-years: 80.00 Smoking status: Never smoker Tobacco type: cigarettes Alcohol intake: never Substance use: never Gender identity (if verbalized by the patient): Male Spiritual care concerns: No Exam Narrative: APPEARANCE: Well appearing, no pain, no distress, well-nourished. HEAD: normocephalic, atraumatic. EYES: PERRLA/EOMI, conjunctivae clear. NOSE: Normal no drainage EARS:TMS clear with good light reflex. THROAT: Pharynx clear, no exudate. NECK: Supple. No adenopathy, no masses. RES
== END 2023-10-27 17:27 | disposition home or self-care (01) ==
PROVIDERS: Emergency Provider Emergency Medicine; PCP Family Medicine
DX: R22.41 Localized swelling, mass and lump, right lower limb (principal); K21.9 Gastro-esophageal reflux disease without esophagitis; M19.071 Primary osteoarthritis, right ankle and foot; G62.9 Polyneuropathy, unspecified; F41.8 Other specified anxiety disorders; Z98.84 Bariatric surgery status; Z96.653 Presence of artificial knee joint, bilateral; Z86.2 Personal history of diseases of the blood and blood-forming organs and certain disorders involving the immune mechanism; Z87.891 Personal history of nicotine dependence; Z90.49 Acquired absence of other specified parts of digestive tract
CPT/HCPCS: 73630; 93971; 99284

== ENCOUNTER 2025-03-06 09:57 | Emergency (ER) | payer MEDICARE, SELFPAY ==
--- NOTE | ~2025-03-06 | XR_ITS ---
EXAMINATION: XR chest 2V DATE: 03/06/2025 10:49 INDICATION: Cough and shortness of breath TECHNIQUE: frontal and lateral views of the chest were obtained. COMPARISON: Chest radiograph dated 10/10/2023 FINDINGS: There are streaky bibasilar opacities, left greater than right which could represent atelectasis or p neumonia. No pleural effusion or pneumothorax. Heart size is normal. There are bridging osteophytes a t multiple levels consistent with diffuse idiopathic skeletal hyperostosis (DISH). Suture anchors at the right humeral head likely for prior rotator cuff repair. IMPRESSION: 1. Mild bibasilar opacities, left greater than right which could represent atelectasis or pneumonia. Reviewed, dictated and finalized at location A. IMPRESSION: 1. Mild bibasilar opacities, left greater than right which could represent atel ectasis or pneumonia.
[2025-03-06 10:09] VITALS: BP 104/79; PULSE 78; RESP 20; TEMP 37.4; O2SAT 98
--- NOTE | 2025-03-06 10:33 | ED_ITS ---
HPI - URI/Sore Throat General Chief Complaint: Upper Respiratory Infection Stated Complaint: Sinus/Congestion Time Seen by Provider: 03/06/25 10:34 Source: patient, RN notes reviewed and old records reviewed Mode of arrival: ambulatory Limitations: no limitations History of Present Illness HPI Narrative: 69-year-old female presents to the [facility] with 10 day history of a yellow productive cough, sinus congestion, sinus drainage that has been clear. Reports intermittent shortness breath. Denies fevers, denies chest pain. Patient states that she has been taking Tylenol and Robitussin. Onset (ago): day(s) () Related Data Home Medications ?Medication ?Instructions ?Recorded ?Confirmed ?Last Taken ?Type cyanocobalamin (vitamin B-12) 1,000 mcg PO DAILY 12/04/20 10/27/23 Unknown History 1,000 mcg tablet ondansetron HCl 4 mg tablet 4 mg PO Q6-12H PRN Nausea 12/04/20 10/27/23 Unknown History topiramate 50 mg tablet 50 mg PO TID 12/04/20 10/27/23 Unknown History diphenhydramine HCl 25 mg tablet 50 mg PO QAM 03/17/21 10/27/23 Unknown History (Allergy (diphenhydramine)) ferrous sulfate 325 mg (65 mg 325 mg PO DAILY 03/17/21 10/27/23 Unknown History iron) tablet,delayed release hydrocodone 10 mg-acetaminophen 1 tablet PO Q8H PRN Pain 03/21/22 10/27/23 Unknown History 325 mg tablet leflunomide 20 mg tablet (Arava) 20 mg PO DAILY 04/13/22 10/27/23 Unknown History famotidine 20 mg tablet 20 mg PO DAILY 07/05/22 10/27/23 Unknown History folic acid 1 mg tablet 1 mg PO DAILY 07/05/22 10/27/23 Unknown History sertraline 100 mg tablet 200 mg PO DAILY 07/05/22 10/27/23 Unknown History triamterene 37.5 1 tablet PO DAILY 07/05/22 10/27/23 Unknown History mg-hydrochlorothiazide 25 mg tablet Allergies Allergy/AdvReac Type Severity Reaction Status Date / Time morphine Allergy Intermediate HALLUCINATE Verified 03/06/25 10:12 S Penicillins AdvReac Mild YEAST Verified 03/06/25 10:12 INFECTION Bumble Bee Allergy Intermediate SWELLING Uncoded 03/06/25 10:12 Review of Systems Review of Systems: All systems reviewed & are unremarkable except as noted in HPI and below Constitutional: Constitutional: Reports no additional constitutional complaints ENT: Reports as per HPI Cardiovascular: Cardiovascular: Reports no additional cardiovascular complaints, Denies chest pain and Denies dyspnea Respiratory: Respiratory: Reports as per HPI, Denies chest congestion, Reports cough and Denies dyspnea Musculoskeletal: Musculoskeletal: Reports no additional musculoskeletal complaints Integumentary/Breasts: Skin/Breast: Reports system reviewed and no additional complaints, except as docu PMFSH Past Medical History Medical History Dyspepsia Non-cardiac chest pain Migraines Neuropathy Depression with anxiety Chronic GERD DVT prophylaxis Anemia Diabetes No longer takes any medications since she had a gastric bypass Hypertension No longer takes any medication for high blood pressure since she received her gastric bypass Panic disorder DJD (degenerative joint disease) Osteoarthritis Rotator cuff tear rt Ovarian cyst Meniere's disease Surgical History Surgical History H/O gastric bypass H/O lateral meniscus repair of right knee History of section, classical Hx of cholecystectomy S/P rotator cuff repair Hx of total knee arthroplasty bilateral Family History Family History Father Cerebrovascular accident Hypertension Cancer Mother Hypertension Diabetes mellitus Breast cancer Other Family history of heart disease in male family member before age 55 Family history of lung disease Family history of malignant neoplasm Family history of seizure disorder Social History Social History Social History: The patient has 2 sons and a daughter. She is . Her 1 son is staying with her at this time. Her son is the durable power director of search engine [employer] for healthcare. The patient is a full code. Patient used to smoke and she quit in 1996. 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 The patient does not use marijuana or alcohol. Smoking packs per day: 4 Smoking cigarettes per day: 80.0 Years smoked: 20 Smoking pack-years: 80.00 Smoking status: Never smoker Tobacco type: cigarettes Alcohol intake: never Substance use: never Gender identity (if verbalized by the patient): Male Spiritual care concerns: No Comments At the time of my signature, I reviewed and agree with the nursing past medical, surgical, social, and family history. There is no relevant family history pertinent to the patient complaint. Exam Const: General: cooperative, healthy appearing, comfortable, no acute distress, well developed, alert and well nourished Nutritional Appearance: well nourished Orientation/consciousness: patient oriented x3 Limitations: no limitations HENMT: Head: normal to inspection Eyes: General: appearance normal, both eyes and all related structures Alignment and Position: alignment normal Neck: Neck: normal visual inspection, full ROM, no lymphadenopathy and no meningeal signs Chest: Chest palpation & inspection: normal inspection of the chest Resp: Effort & Inspection: normal respiratory effort and able to speak in complete sentences Auscultation: clear to auscultation bilaterally, no crackles, no rales, no rhonchi, no wheezes and diminished lung sounds bilateral in the lower lung solo Cardio: Rate: regular rate Skin: General skin exam: normal color and no rashes or lesions noted Neuro: General: patient oriented x3, gait normal, moves all extremities and no meningeal signs Cognition (Neuro): normal cognition Speech: normal speech Gait exam (Neuro): Normal gait present Extrem: General: normal to inspection, full ROM, capillary refill normal and normal gait Psych: Appearance: grossly normal and well kempt Mental Status: mental status grossly normal Speech and movement: Normal speech and movement present and Clear speech present Affect: normal affect Attitude: cooperative Course Course Level of Care: Express Care Visit Vital Signs Vital signs: Vital Signs Temperature 99.4 F 03/06/25 10:09 Pulse Rate 78 03/06/25 10:09 Respiratory Rate 20 03/06/25 10:09 Blood Pressure 104/79 03/06/25 10:09 Pulse Oximetry 98 03/06/25 10:09 Oxygen Delivery Room Air 03/06/25 10:09 Temperature 99.4 F 03/06/25 10:09 Pulse Rate 78 03/06/25 10:09 Respiratory Rate 20 03/06/25 10:09 Blood Pressure 104/79 03/06/25 10:09 Pulse Oximetry 98 03/06/25 10:09 Oxygen Delivery Room Air 03/06/25 10:09 Reviewed MDM - URI/Sore Throat MDM Narrative Medical decision making narrative: Patient sitting in exam room. Nontoxic, vitals stable. Patient in no acute distress. Patient presents with 10 day history of cough, productive. X-ray shows pneumonia versus atelectasis, will cover for pneumonia with antibiotics. Patient is appropriate for outpatient treatment with close follow-up with strict signs and symptoms proceed to the emergency room which he verbalized understanding. Discharge instructions reviewed with patient, as well as provided in writing per nursing staff. The instructions also include specific and strict return/GO TO THE ER as well as f/u information. All questions have been answered, and the patient deny any further questions with discharge and discharge plan. Some parts of this dictation were generated by voice recognition software and may contain typographical and/or grammatical inaccuracies. Differential Diagnosis Differential diagnosis: Likely upper respiratory infection, otitis media, sinusitis, viral infection, bronchitis, influenza and pharyngitis Imaging Data Radiologist's impression: EXAMINATION: XR chest 2V DATE: 03/06/2025 10:49 INDICATION: Cough and shortness of breath TECHNIQUE: frontal and lateral views of the chest were obtained. COMPARISON: Chest radiograph dated 10/10/2023 FINDINGS: There are streaky bibasilar opacities, left greater than right which could represent atelectasis or pneumonia. No pleural effusion or pneumothorax. Heart size is normal. There are bridging osteophytes at multiple levels consistent with diffuse idiopathic skeletal hyperostosis (DISH). Suture anchors at the right humeral head likely for prior rotator cuff repair. IMPRESSION: 1. Mild bibasilar opacities, left greater than right which could represent atelectasis or pneumonia. Critical Care Time Critical Care Time Critical Care Time: No Discharge Plan Discharge Clinical Impression: Atelectasis Pneumonia Qualifiers: Pneumonia type: due to unspecified organism Laterality: bilateral Lung location: unspecified part of lung Qualified Code(s): J18.9 - Pneumonia, unspecified organism Patient Disposition: Home Condition: Stable Instructions: Antibiotic Form, Pneumonitis (ED), Pneumonia (ED), Atelectasis (ED) Additional Instructions: Follow-up with primary care provider this week Is important that you do take 10 deep breaths every hour while awake. Please use the incentive spirometer Take antibiotics as prescribed For new or worsening symptoms please go directly to the emergency room Patient Language: Mauritanian Prescriptions: New azithromycin 250 mg tablet See Rx Instructions .ROUTE .COMPLEX Qty: 6 0RF Rx Instructions: take 500 mg today (day 1), then 250 mg for 4 days (days 2-5) albuterol sulfate 90 mcg/actuation HFA aerosol inhaler 2 puff inhalation QID PRN (Reason: shortness of breath or wheezing) Qty: 6.7 0RF amoxicillin-pot clavulanate 875-125 mg tablet 1 tablet PO Q12H 5 Days Qty: 10 0RF (DME) Aerochamber MV Spacer See Rx Instructions .Route Qty: 1 0RF Rx Instructions: As directed fluconazole 150 mg tablet 150 mg PO ONCE Qty: 1 0RF Rx Instructions: as a single dose No Action sertraline 100 mg tablet 200 mg PO DAILY famotidine 20 mg tablet 20 mg PO DAILY triamterene-hydrochlorothiazid 37.5-25 mg tablet 1 tablet PO DAILY folic acid 1 mg tablet 1 mg PO DAILY ondansetron HCl 4 mg tablet 4 mg PO Q6-12H PRN (Reason: Nausea) cyanocobalamin (vitamin B-12) 1,000 mcg tablet 1,000 mcg PO DAILY topiramate 50 mg tablet 50 mg PO TID albuterol sulfate [ProAir HFA] 90 mcg/actuation HFA aerosol inhaler 1 inh inhalation QID PRN (Reason: shortness of breath or wheezing) Qty: 8.5 1RF hydrocodone-acetaminophen 10-325 mg tablet 1 tablet PO Q8H PRN (Reason: Pain) leflunomide [Arava] 20 mg tablet 20 mg PO DAILY diphenhydramine HCl [Allergy (diphenhydramine)] 25 mg Tablet 50 mg PO QAM ferrous sulfate 325 mg (65 mg iron) Tablet,Delayed Release (Dr/Ec) 325 mg PO DAILY Follow-up/Referrals: Ruben Schreiber MD [Primary Care Provider] - 2 Weeks ([facility] follow-up) Stand Alone Forms: Work/School Release IP Time of Disposition: 11:20
== END 2025-03-06 11:25 | disposition home or self-care (01) ==
PROVIDERS: Emergency Provider Nurse Practitioner; PCP Family Medicine
DX: J98.11 Atelectasis (principal); J18.9 Pneumonia, unspecified organism; E11.9 Type 2 diabetes mellitus without complications; I10 Essential (primary) hypertension; F17.210 Nicotine dependence, cigarettes, uncomplicated
CPT/HCPCS: 71046; 99213; G0463

== ENCOUNTER 2025-04-30 12:53 | Outpatient (CLI) | payer MEDICARE, SELFPAY ==
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
== END 2025-04-30 12:54 | disposition home or self-care (01) ==
LOC: MICIMG 12:53
PROVIDERS: PCP Family Medicine; Visit Provider Psychiatry & Neurology Neurology
DX: G31.84 Mild cognitive impairment of uncertain or unknown etiology (principal); E11.9 Type 2 diabetes mellitus without complications; R63.5 Abnormal weight gain; Z87.828 Personal history of other (healed) physical injury and trauma
CPT/HCPCS: 70551